=== PATIENT | female | born 1970 | race Caucasian/White ===

== ENCOUNTER → 2018-04-24 16:30 | Outpatient (CLI) | payer OTHER, SELFPAY ==
[2018-04-24 17:24] LABS: T4 Free Direct 1.18 ng/dL (0.76-1.46); Thyroid Stim Hormone (TSH) < 0.01 uIU/mL (0.358-3.74)
== END ==
PROVIDERS: Family Provider Family Medicine; PCP Family Medicine; Visit Provider Family Medicine
DX: E03.9 Hypothyroidism, unspecified (principal)
CPT/HCPCS: 84439; 84443

== ENCOUNTER → 2018-07-08 12:52 | Outpatient (CLI) | payer OTHER, SELFPAY ==
[2018-07-08 14:05] LABS: T4 Free Direct 0.88 ng/dL (0.76-1.46); Thyroid Stim Hormone (TSH) < 0.01 uIU/mL (0.358-3.74)
[2018-07-11 13:08] LABS: Free T3 2.3 pg/mL (2.18-3.98)
== END ==
PROVIDERS: Family Provider Family Medicine; PCP Family Medicine; Referring Provider Family Medicine; Visit Provider Family Medicine
DX: E03.9 Hypothyroidism, unspecified (principal)
CPT/HCPCS: 36415; 84439; 84443; 84481

== ENCOUNTER → 2018-08-21 16:02 | Outpatient (CLI) | payer OTHER, SELFPAY ==
[2018-08-21 17:58] LABS: Free T3 2.4 pg/mL (2.18-3.98); T4 Free Direct 0.96 ng/dL (0.76-1.46); Thyroid Stim Hormone (TSH) 0.05 uIU/mL (0.358-3.74)
== END ==
PROVIDERS: Family Provider Family Medicine; PCP Family Medicine; Referring Provider Family Medicine; Visit Provider Family Medicine
DX: E03.9 Hypothyroidism, unspecified (principal)
CPT/HCPCS: 36415; 84439; 84443; 84481

== ENCOUNTER → 2018-10-10 16:35 | Outpatient (CLI) | payer OTHER, SELFPAY ==
[2018-10-10 17:15] LABS: Absolute Lymphocyte Count 3.06 X10^3/ul (0.83-4.51); Absolute Neutrophil Count 6.7 X10^3/uL (2.0-7.7); Basophil# 0.04 X10^3/uL; Basophil% 0.4 % (0-1); Eosinophil# 0.26 X10^3/uL; Eosinophils% 2.4 % (0-5); Hematocrit 40.9 % (37-47); Hemoglobin 13.3 g/dl (12.0-15.0); Lymphocyte # 3.06 X10^3/ul (4.0); Lymphocyte % 27.8 % (19-41); Mean Corp Hgb Conc 32.5 g/gl (32-36); Mean Corpuscular Volume 92.3 fL (81-99); Mean Platelet Vol. 10.6 fl (6.2-12.0); Monocyte# 0.86 X10^3/uL; Monocyte% 7.8 % (0-10); Neutrophil % 60.8 % (47-70); Platelet Count 263 K/mm3 (150-450); RBC Distribution Width CV 12.8 % (11.6-14.6); RBC Distribution Width SD 41.9 fl (35.1-43.9); Red Blood Count 4.43 M/mm3 (4.2-5.4)
[2018-10-10 17:16] LABS: POSITIVE COUNT NO; POSITIVE DIFFERENTIAL NO; POSITIVE MORPHOLOGY NO
[2018-10-10 17:37] LABS: Vitamin B12 406 pg/mL (211-911); Vitamin D,25 Hydroxy 17.9 ng/mL (29.95-100.01)
[2018-10-10 18:15] LABS: ALB/GLOB Ratio 0.9 RATIO (0.9-2.4); AST(SGOT) 16 U/L (15-37); Alanine Aminotransfer ALT/SGPT 25 U/L (13-56); Albumin, Serum 3.5 g/dL (3.2-5.0); Alkaline Phosphatase 106 U/L (45-117); Anion Gap 5 (5-15); BUN 11 mg/dL (7-18); BUN/Creat Ratio 15.7 RATIO (10-20); Calcium,Total 8.3 mg/dL (8.5-10.1); Chloride 106 mmol/L (98-107); EST Glomerular Filtration Rate 95 mL/min (>60); Est Glom Filt Rate - Afr Amer 115 mL/min (>60); Ferritin 46 ng/mL (8-252); Globulin 3.7 g/dL (2.2-4.2); Glucose 87 mg/dL (74-106); Iron Binding Capacity,Total 355 ug/dL (250-450); Potassium 4.6 mmol/L (3.5-5.1); Protein, Total 7.2 g/dL (6.4-8.2); Sodium Level 138 mmol/L (136-145); T3 Uptake 34 % (30-39); T4 Free Direct 0.67 ng/dL (0.76-1.46); Thyroid Stim Hormone (TSH) 0.89 uIU/mL (0.358-3.74)
[2018-10-14 11:08] LABS: Zinc, Plasma or Serum 62 ug/dL (56-134)
== END ==
PROVIDERS: Family Provider Family Medicine; PCP Family Medicine; Referring Provider Family Medicine; Visit Provider Family Medicine
DX: E03.9 Hypothyroidism, unspecified (principal); E55.9 Vitamin D deficiency, unspecified; Z71.3 Dietary counseling and surveillance
CPT/HCPCS: 36415; 80053; 82306; 82607; 82728; 82746; 83550; 84439; 84443; 84479; 84630; 85025

== ENCOUNTER 2019-01-20 08:38 | Emergency (ER) | payer OTHER, SELFPAY ==
[2019-01-20 08:38] VITALS: BP 147/86; PULSE 117; RESP 18; TEMP 37.3; O2SAT 98; BMI 38.2
--- NOTE | 2019-01-20 09:01 | EKG12_ITS ---
Test Reason : EDEMA Blood Pressure : / mmHG Vent. Rate : 095 BPM Atrial Rate : 095 BPM P-R Int : 164 ms QRS Dur : 080 ms QT Int : 342 ms P-R-T Axes : 036 013 007 degrees QTc Int : 429 ms Normal sinus rhythm Low Voltage QRS (Precordial Leads) Confirmed by JAMES HUTCHINS, CHASE ([id number]), magazine editor SAMIR NGUYEN ([id number]) on 01/22/2019 1:26:03 PM Referred By: GABINO Confirmed By:CHASE RAMIREZ MD
--- NOTE | 2019-01-20 09:02 | RAD_ITS ---
STUDY: X-RAY - LEFT TIBIA AND FIBULA REASON FOR EXAM: Female, 48 years old. 2 week history of swelling. No known injury. TECHNIQUE: AP and lateral view(s) of the tibia and fibula were obtained. COMPARISON: None. FINDINGS: Normal visualized tibia. Normal visualized fibula. The soft tissue structures are unremarkable. RAD/Tibia & Fibula 2 Views IMPRESSION: Normal x-ray examination of the tibia and fibula. Electronically Signed: Ki Ayala, at 10:33 EDT , Service support ,
--- NOTE | 2019-01-20 09:02 | VDLE_ITS ---
Reason For Study: pain RIGHT LEFT CFV is compressible, spontaneous, phasic, GSV is normal. competent and demonstrates normal CFV is compressible, spontaneous, phasic, augmentation. competent, and demonstrates normal Procedure augmentation. Exam performed portable in ED. FV is compressible, spontaneous, phasic, The exam was diagnostic. competent and demonstrates normal A preliminary report was called and/or faxed augmentation. to Dr. Goodman. POP V is compressible, spontaneous, phasic, competent and demonstrates normal augmentation. T/P Trunk is compressible. PTV is compressible. LT PerV is compressible. Interpretation Summary There is no evidence of left lower extremity deep vein thrombosis. Left greater saphenous vein appears patent and compressible segmentally. Normal flow patterns right common femoral vein. Ordering Physician: Casey Goodman Performed By: Harrison Adams RVT
--- NOTE | 2019-01-20 09:02 | RAD_ITS ---
STUDY: X-RAY - LEFT FOOT CLINICAL: Female, 48 years old. Two-week history of ankle swelling. Pain. No known injury. TECHNIQUE: 3 view(s) of the foot. COMPARISON: None. FINDINGS: There is a plantar calcaneal spur. Normal visualized subtalar, talonavicular, calcaneocuboid, tarsal and tarsometatarsal articulations. Normal metatarsi. Normal metatarsophalangeal joint of the great toe. Normal tibial and fibular sesamoid bones. Normal interphalangeal joint of the great toe. Normal phalanges of the great toe. Normal second through fifth metatarsophalangeal joints. Normal interphalangeal joints and phalanges of the lesser toes. Soft tissue swelling. RAD/Foot min 3 Views IMPRESSION: Plantar spur. Electronically Signed: Ki Ayala, at 10:33 EDT , Service support ,
--- NOTE | 2019-01-20 09:04 | ED.VISSUMM ---
- ER Visit Summary Date of Service: 01/20/19 Chief Complaint: Left leg pain and swelling History of Present Illness: The patient is a [address] Larry Armas. She reports that approximately 1 month ago she began doing yoga which is a change for her. She reports that she had been doing well and was a bit sore, but nothing unexpected. 2 weeks ago she had a deep tissue massage and woke the next morning and her left ankle was swollen and painful. She reports that the area was painful to the touch and she had mild pain with walking. She states that the next morning both ankles were painful and swollen. She states that she is continued to do yoga and her pain actually improves during this. She notes that her pain is the worst in the morning or if she has been sitting. This morning patient reports that her left ankle and knee are much more painful. She states that she has a constant dull, aching pain that is 2 out of 10 at rest and 8 out of 10 with touching it, walking, or moving her foot. She has not taken anything for pain. She does report that she had mild relief from a hot shower. She reports that that this morning when she went to walk the pain was so severe that she actually fell twice. She denies any blow to the head or loss of consciousness. She is not on anticoagulants. She denies any neck, back, shoulder, wrist, or hip pain. Review of systems: General: No fever, chills, cold sweats. Cardiovascular: No chest pain, palpitations. Respiratory: No cough, shortness of breath, dyspnea on exertion. Gastrointestinal: No abdominal pain, nausea, vomiting, diarrhea, melena, or hematochezia. Genitourinary: No dysuria, frequency, hematuria. Skin: No rash. Neuro: No headache, numbness, weakness. Physical Examination: Vitals: Stable. Afebrile. General: Well-nourished and well-developed. Head: Normocephalic atraumatic. Neck: Supple, no lymphadenopathy. No JVD. Nontender. Cardiovascular: Regular rate and rhythm. No murmurs. Respiratory: No respiratory distress. Clear to auscultation bilaterally. Abdominal: Soft, nontender, nondistended, normal bowel sounds. No guarding, rebound, or peritoneal signs. Back: Nontender. Extremities: Trace edema left leg. She has a 2+ dorsalis pedis pulse bilaterally. Normal sensation to light touch. She has moderate tenderness palpation over both the medial and lateral malleoli on the left. There is mild tenderness to palpation over the plantar surface of the calcaneus distally. There is no pain over the plantar fascia. She has mild tenderness palpation in the left popliteal fossa. She has good range of motion of her knee without difficulty. Skin: Normal color, no rash. Neurologic: Alert and oriented ?3. Cranial nerves II through XII are intact. Normal strength and sensation. Psych: Normal affect. Test Results: EKG is sinus at [address] changes. Is unchanged from 2017. Troponin is negative. PT DOOR CLOSER is 20.4. UA is negative. LFTs are marked for alk phos of 126. Chem-7 is normal. CBC shows a white count of 14.7 with segmented neutrophils 84 monocytes of 9. TSH is 0.08. Left lower extremity Doppler is negative. Left tib-fib x-ray shows no acute disease. Left foot x-ray shows a plantar calcaneal spur and is otherwise negative. Emergency Department Course and Treatment: Patient had an IV placed. She was given a dose of morphine and Zofran IV. She is resting comfortably. Treatment Plan: The patient was discussed with Dr. Zelaya and Dr. Armas. At this time it is felt that she does not need antibiotics. She will be discharged with Thierno and instructed to follow-up with Dr. Armas tomorrow for further evaluation. Return to the emergency department for any worsening symptoms. Disposition: To home in improved and stable condition. Impression: 1. Left ankle pain, uncertain cause. 2. Leukocytosis. This note was generated with [employer] dictation software. It may contain incorrect words, spelling, and punctuation that were not noted in review of the chart prior to signing ED Disposition - Plan for ED Patient: Disposition: Home or Assisted Living Instructions: ED Leg Swelling Unilateral Prescriptions: Hydrocodone Bitart/Apap 5-325 [[place] 5MG-325MG] 1 tablet PO Q6H PRN PRN 3 Days #12 tablet PRN Reason: Pain Referrals: Larry Armas MD [Primary Care Provider] - 1 Day for another exam
--- NOTE | 2019-01-20 09:08 | ED.DCSUM_ITS ---
- ER Visit Summary Date of Service: 01/20/19 Chief Complaint: Left leg pain and swelling History of Present Illness: The patient is a [address] Larry Armas. She reports that approximately 1 month ago she began doing yoga which is a change for her. She reports that she had been doing well and was a bit sore, but nothing unexpected. 2 weeks ago she had a deep tissue massage and woke the next morning and her left ankle was swollen and painful. She reports that the area was painful to the touch and she had mild pain with walking. She states that the next morning both ankles were painful and swollen. She states that she is continued to do yoga and her pain actually improves during this. She notes that her pain is the worst in the morning or if she has been sitting. This morning patient reports that her left ankle and knee are much more painful. She states that she has a constant dull, aching pain that is 2 out of 10 at rest and 8 out of 10 with touching it, walking, or moving her foot. She has not taken anything for pain. She does report that she had mild relief from a hot shower. She reports that that this morning when she went to walk the pain was so severe that she actually fell twice. She denies any blow to the head or loss of consciousness. She is not on anticoagulants. She denies any neck, back, shoulder, wrist, or hip pain. Review of systems: General: No fever, chills, cold sweats. Cardiovascular: No chest pain, palpitations. Respiratory: No cough, shortness of breath, dyspnea on exertion. Gastrointestinal: No abdominal pain, nausea, vomiting, diarrhea, melena, or hematochezia. Genitourinary: No dysuria, frequency, hematuria. Skin: No rash. Neuro: No headache, numbness, weakness. Physical Examination: Vitals: Stable. Afebrile. General: Well-nourished and well-developed. Head: Normocephalic atraumatic. Neck: Supple, no lymphadenopathy. No JVD. Nontender. Cardiovascular: Regular rate and rhythm. No murmurs. Respiratory: No respiratory distress. Clear to auscultation bilaterally. Abdominal: Soft, nontender, nondistended, normal bowel sounds. No guarding, rebound, or peritoneal signs. Back: Nontender. Extremities: Trace edema left leg. She has a 2+ dorsalis pedis pulse bilaterally. Normal sensation to light touch. She has moderate tenderness palpation over both the medial and lateral malleoli on the left. There is mild tenderness to palpation over the plantar surface of the calcaneus distally. There is no pain over the plantar fascia. She has mild tenderness palpation in the left popliteal fossa. She has good range of motion of her knee without difficulty. Skin: Normal color, no rash. Neurologic: Alert and oriented ?3. Cranial nerves II through XII are intact. Normal strength and sensation. Psych: Normal affect. Test Results: EKG is sinus at [address] changes. Is unchanged from 2017. Troponin is negative. PT ADVERTISING DISPLAY ROTATOR is 20.4. UA is negative. LFTs are marked for alk phos of 126. Chem-7 is normal. CBC shows a white count of 14.7 with segmented neutrophils 84 monocytes of 9. TSH is 0.08. Left lower extremity Doppler is negative. Left tib-fib x-ray shows no acute disease. Left foot x- ray shows a plantar calcaneal spur and is otherwise negative. Emergency Department Course and Treatment: Patient had an IV placed. She was given a dose of morphine and Zofran IV. She is resting comfortably. Treatment Plan: The patient was discussed with Dr. Zelaya and Dr. Armas. At this time it is felt that she does not need antibiotics. She will be discharged with Thierno and instructed to follow-up with Dr. Armas tomorrow for further evaluation. Return to the emergency department for any worsening symptoms. Disposition: To home in improved and stable condition. Impression: 1. Left ankle pain, uncertain cause. 2. Leukocytosis. This note was generated with [employer] dictation software. It may contain incorrect words, spelling, and punctuation that were not noted in review of the chart prior to signing ED Disposition - Plan for ED Patient: Disposition: Home or Assisted Living Instructions: ED Leg Swelling Unilateral Prescriptions: Hydrocodone Bitart/Apap 5-325 [[place] 5MG-325MG] 1 tablet PO Q6H PRN PRN 3 Days #12 tablet PRN Reason: Pain Referrals: Larry Armas MD [Primary Care Provider] - 1 Day for another exam
[2019-01-20] MEDS: Ondansetron 4 MG/2 ML Vial IV (09:21)
[2019-01-20] MEDS: Morphine 4 MG/ML Syringe IV (09:21)
[2019-01-20 09:33] LABS: Absolute Lymphocyte Count 1.29 X10^3/ul (0.83-4.51); Absolute Neutrophil Count 12.3 X10^3/uL (2.0-7.7); Basophil# 0.02 X10^3/uL; Basophil% 0.1 % (0-1); Eosinophil# 0.11 X10^3/uL; Eosinophils% 0.7 % (0-5); Hematocrit 40.8 % (37-47); Hemoglobin 13.4 g/dl (12.0-15.0); Lymphocyte # 1.29 X10^3/ul (4.0); Lymphocyte % 8.8 % (19-41); Mean Corp Hgb Conc 32.8 g/gl (32-36); Mean Corpuscular Hgb 29.1 pg (27.0-32.0); Mean Corpuscular Volume 88.5 fL (81-99); Mean Platelet Vol. 10.6 fl (6.2-12.0); Monocyte# 0.89 X10^3/uL; Monocyte% 6.1 % (0-10); Neutrophil # 12.32 X10^3/uL (2.7-7.7); Platelet Count 244 K/mm3 (150-450); RBC Distribution Width CV 12.9 % (11.6-14.6); Red Blood Count 4.61 M/mm3 (4.2-5.4); White Blood Count 14.7 K/mm3 (4.4-11.0)
[2019-01-20 09:34] LABS: POSITIVE COUNT NO; POSITIVE DIFFERENTIAL NO; POSITIVE MORPHOLOGY NO
[2019-01-20 10:01] LABS: ALB/GLOB Ratio 0.8 RATIO (0.9-2.4); AST(SGOT) 23 U/L (15-37); Alanine Aminotransfer ALT/SGPT 21 U/L (13-56); Albumin, Serum 3.3 g/dL (3.2-5.0); Alkaline Phosphatase 126 U/L (45-117); Anion Gap 5 (5-15); BNP,B-Type NATRIURETIC PEPTIDE 20.4 pg/mL (0-100); BUN 10 mg/dL (7-18); BUN/Creat Ratio 14.7 RATIO (10-20); Calcium,Total 8.7 mg/dL (8.5-10.1); Chloride 107 mmol/L (98-107); Creatinine, Serum 0.68 mg/dL (0.55-1.02); EST Glomerular Filtration Rate 98 mL/min (>60); Est Glom Filt Rate - Afr Amer 119 mL/min (>60); Estimated Creatinine Clearance 87.37 ml/min; Globulin 3.9 g/dL (2.2-4.2); Glucose 104 mg/dL (74-106); Potassium 4.3 mmol/L (3.5-5.1); Protein, Total 7.2 g/dL (6.4-8.2); Sodium Level 139 mmol/L (136-145); Thyroid Stim Hormone (TSH) 0.08 uIU/mL (0.358-3.74)
[2019-01-20] MEDS: HYDROcodone Bitartrate/Apap 5/325 Tablet PO (10:58)
[2019-01-20 11:01] VITALS: BP 105/70; PULSE 81; RESP 16; O2SAT 97
[2019-01-20 12:01] LABS: Color, Urine Yellow (Yellow); Glucose, Dipstick Normal (Normal); Ketone-Dipstick Negative (Negative); Leukocyte Esterase-Dipstick 25 /ul (Negative); Nitrite-Dipstick Negative (Negative); Occult Blood-Urine Negative /ul (Negative); Protein-Dipstick Negative (Negative); Urine Bilirubin Dipstick Negative (Negative); Urine Clarity Sl. Cloudy (Clear); Urine Urobilinogen Normal (Normal)
[2019-01-20 12:13] LABS: Bacteria RARE /hpf (None Seen); Mucous, Urine RARE /hpf (<or=2+); Red Blood Cells-Urine 0-5 SEEN /hpf (0-5); Squamous Epithelial Cells - UA 0-5 SEEN /hpf (5-10); White Blood Cells 0-5 SEEN /hpf (0-5)
[2019-01-20 13:19] VITALS: BP 98/62; PULSE 71; RESP 15; O2SAT 98
[2019-01-20 13:40] LABS: CPK Total, Creatine Kinase 67 U/L (26-192)
== END 2019-01-20 13:20 | disposition home or self-care (01) ==
LOC: ED 09:08
PROVIDERS: Emergency Provider Emergency Medicine; Family Provider Family Medicine; PCP Family Medicine
DX: M25.572 Pain in left ankle and joints of left foot (principal); D72.829 Elevated white blood cell count, unspecified; E06.3 Autoimmune thyroiditis
CPT/HCPCS: 73590; 73630; 80053; 81001; 82550; 83880; 84443; 84484; 85025; 93005; 93971; 96374; 96375; 99285; A4216; J2405

== ENCOUNTER → 2019-05-06 14:52 | Outpatient (CLI) | payer OTHER, SELFPAY ==
--- NOTE | 2019-05-06 14:54 | BI_ITS ---
MAMMOGRAPHY - BILATERAL SCREENING REASON FOR EXAM: Female, 48 years old. Routine annual screening examination. PERTINENT HISTORY: Non-contributory. TECHNIQUE: Digital bilateral breast kenneth (3D mammographic acquisition) in the CC and MLO projections. 2-D mediolateral oblique (MLO) and craniocaudad (CC) views of both breasts were obtained. CAD: Full Field Digital Mammography with Computer Added Detection was performed. COMPARISON: Comparison is made with prior study dated September 12, 2017. FINDINGS: Breast Composition: The breasts are heterogeneously dense, which may obscure small masses. There are no dominant masses or suspicious calcifications. Stable small bilateral axillary lymph nodes. No other significant abnormalities are identified. There has been no significant change since the prior study. BI/SCREEN MAMM (CAD) W/KENNETH BILAT IMPRESSION: Stable bilateral screening mammogram. Yearly follow-up mammogram recommended. (A) ASSESSMENT CATEGORY: BIRADS Category 2: Benign. A letter regarding these results will be sent to the patient by the facility within 30 days. Approximately 10% of breast cancers are not detected by mammography. A normal mammogram should not delay biopsy of a clinically suspicious abnormality. [id number] Electronically Signed: Ki Ayala, at 8:19 EDT , Service support ,
== END ==
PROVIDERS: Family Provider Family Medicine; PCP Family Medicine; Referring Provider Nurse Practitioner Adult Health; Visit Provider Nurse Practitioner Adult Health
DX: Z12.31 Encounter for screening mammogram for malignant neoplasm of breast (principal)
CPT/HCPCS: 77063; 77067

== ENCOUNTER → 2019-08-31 11:48 | Outpatient (CLI) | payer OTHER, SELFPAY ==
[2019-06-24 21:10] VITALS: BMI 38.2
[2019-08-31 13:13] LABS: Estradiol 53.2 pg/mL; Follicle Stimulating Hormone 33.1 mIU/mL; Free T3 2.4 pg/mL (2.18-3.98); Prolactin 5.3 ng/mL; T4 Free Direct 0.96 ng/dL (0.76-1.46)
[2019-09-02 09:36] LABS: Insulin Like Growth Factor 109 ng/mL (57-195)
[2019-09-02 17:05] LABS: Thyroid Peroxidase AB 112 IU/mL (0-34)
== END ==
PROVIDERS: Family Provider Family Medicine; PCP Family Medicine; Referring Provider Internal Medicine Endocrinology, Diabetes & Metabolism; Visit Provider Internal Medicine Endocrinology, Diabetes & Metabolism
DX: E23.7 Disorder of pituitary gland, unspecified (principal); E03.9 Hypothyroidism, unspecified
CPT/HCPCS: 36415; 82533; 82670; 83001; 84146; 84305; 84439; 84443; 84481; 86376

== ENCOUNTER 2019-10-13 13:00 | Outpatient (RCR) | payer OTHER, SELFPAY ==
[2019-06-24 21:10] VITALS: BMI 38.2
--- NOTE | 2019-09-08 09:27 | HP.PTEVAL ---
Patient's Visit Information ABRIL PROCTOR is a 48 year old F referred to Physical Therapy by Larry Armas MD with a diagnosis of R rotator cuff tenderness. Date of Evaluation: 09/08/19 Physical Therapist: Devon Marin PT, ATC - Visit Plan Frequency: 2-3x /Week Duration: 9 visits Plan: R rotator cuff strengthening, scapular stab ex's, UBE, and HEP - Subjective Findings: Pt reports her R shoulder has been sore for greater than six months. Pt reports her pain had an insidious onset in nature. Pt reports she has had several injections in her R shoulder which has actually made her feel worse overall. Pt notes she is R hand dominant. Pt reports reaching behind her back and driving a car increases her pain. Pt reports the pain begins on the posterior aspect of her R shoulder and will extend down to her hand at times. Pt describes her pain as a dull pain. Sleep difficulty at night secondary to pain. Pt reports she has had no Dx tests at this time. .5/10 pain at rest, 7/10 pain at worst (when it catches). R shoulder does not pop or lock up in her. - Pain R shoulder Pain Intensity (Out of 10): 1 Pain Intensity Range: 7 - Objective Neuro: B LE sensation is WNL to light touch. B bicepital reflex = 2/3. Palpation: Pain is present on the lateral aspect of the R shoulder. No obvious deformity present. ROM: L shoulder flexion= 155, abduction= 150, ER= 65, IR WNL; R shoulder flexion= 150, abd= 105, ER= 45, IR minimally limited. MMT: R shoulder is grossly 4-/5 and painful. L shoulder is 5/5 throughout. Special tests: Pos HK impingement tests - Goals Goal 1:: Decrease R shoulder pain x 50% to aid with sleep Goal Time Frame: 4-6 Weeks Goal 2:: Increase R shoulder strength x 1 grade to aid with IADL's Goal Time Frame: 4-6 Weeks Goal 3:: Increase R shoulder strength x 1 grade to aid with IADL's Goal Time Frame: 4-6 Weeks Goal 4:: I with HEP Goal Time Frame: 4-6 Weeks - Rehabilitation Potential Physical Therapy Diagnosis: R shoulder pain, weakness, and limited ROM secondary to rotator cuff syndrome Rehabilitation Potential: Good - Anticipated Interventions Patient/Client Instruction: Educate patient on: Condition, Plan of Care For the Purpose of:: To improve self management Therapeutic Exercise to Include: Strength training, Endurance training, Body mechanics, Active ROM, Scapular Strength/Stabilization For the Purpose of:: To decrease pain, To increase ROM, To improve muscle performance and motor function Cryotherapy (ice pack, ice massage): Yes For the Purpose of:: To decrease pain Thank you for the opportunity to evaluate your patient. For Medicare and Medicare HMO plans, please review the plan of care and approve it. It will need to be FAXED BACK to us at [phone] for Medicare purposes. For Medicare only, by signing this I certify the plan of care. Please let me know if there are questions or concerns regarding this plan of care. Physician Signature: Date:
--- NOTE | 2019-10-13 13:34 | HP.PTDCSUM ---
HP - PT D/C Summary It has been my pleasure to treat ABRIL PROCTOR under orders from Larry Armas MD, for the diagnosis of R rotator cuff tenderness for a total of 9 visit(s). Discharge Date: Please see the following information for a summary of their discharge status. - Subjective Subjective: Pt reports her shoulder still catches which is really painful - Pain R shoulder Pain Intensity (Out of 10): 4 - Overall Improvement % Improvement: 60 - Objective Objective/Function: R shoulder pain ranges from 4-9/10. R shoulder ROM: flex= 140, abd= 110, ER= 45 degrees. R shoulder MMT: 4-/5 throughout available ROM. Pt is I with HEP - Goals Goal 1:: Decrease R shoulder pain x 50% to aid with sleep Goal 2:: Increase R shoulder strength x 1 grade to aid with IADL's Goal 3:: Increase R shoulder strength x 1 grade to aid with IADL's Goal 4:: I with HEP - Plan Plan: Discontinue, RTD - D/C Information If there are questions or concerns regarding this patient's physical therapy, please feel free to call me at [phone]. Thank you for the referral of this patient. Sincerely, Devon Marin, PT, ATC
== END 2019-10-13 19:00 | disposition home or self-care (01) ==
LOC: PT 13:00
PROVIDERS: Family Provider Family Medicine; PCP Family Medicine; Referring Provider Family Medicine; Visit Provider Family Medicine
DX: M25.511 Pain in right shoulder (principal)
CPT/HCPCS: 97110; 97161; 97164

== ENCOUNTER → 2019-10-29 10:32 | Outpatient (CLI) | payer OTHER, SELFPAY ==
[2019-10-29 10:28] VITALS: BMI 38.2
--- NOTE | 2019-10-29 10:33 | RAD_ITS ---
STUDY: X-RAY - RIGHT SHOULDER REASON FOR EXAM: Pain, no specific injury. TECHNIQUE: 3 view(s) of the shoulder. COMPARISON: None. FINDINGS: Normal glenohumeral articulation. There is mild acromioclavicular arthrosis. Normal acromion. Normal humeral head and visualized proximal humerus. The soft tissue structures are unremarkable. Normal visualized pulmonary apex. RAD/Shoulder min 2 Views IMPRESSION: Mild acromioclavicular arthrosis. Electronically Signed: Edil Gan MD at 13:12 EST Tel , Service support ,
--- NOTE | 2019-10-29 10:33 | RAD_ITS ---
STUDY: X-RAY - CERVICAL SPINE REASON FOR EXAM: Female, 49 years old. Neck and right shoulder pain. TECHNIQUE: 5 view(s) of the cervical spine were obtained. COMPARISON: None FINDINGS: Normal anterior atlantoaxial articulation. Normal odontoid process. Normal cervical lordosis. Normal vertebral bodies and endplates. Normal disc space heights. Diffuse mild uncovertebral and facet sclerosis. Carotid calcification bilaterally. RAD/Cerv Spine 4 or 5 Views IMPRESSION: Mild cervical spondylosis. Carotid calcification. Electronically Signed: Jean Marie Cordova MD at 16:43 EST , Service support ,
== END ==
PROVIDERS: PCP Family Medicine; Referring Provider Orthopaedic Surgery; Visit Provider Orthopaedic Surgery
DX: M79.601 Pain in right arm (principal); M25.511 Pain in right shoulder
CPT/HCPCS: 72050; 73030

== ENCOUNTER → 2019-11-06 13:09 | Outpatient (CLI) | payer OTHER, SELFPAY ==
[2019-10-29 10:28] VITALS: BMI 38.2
--- NOTE | 2019-11-06 13:09 | MRI_ITS ---
STUDY: MRI RIGHT SHOULDER REASON FOR EXAM: Right shoulder biceps pain for one year. TECHNIQUE: Standardized fat and water weighted pulse sequences were obtained in all 3 orthogonal planes. COMPARISON: Radiographs 10/29/2019. FINDINGS: There is supraspinatus tendinosis and intermediate grade partial-thickness tear of the bursal surface of the distal anterior supraspinatus tendon (T2 sagittal image 7; T2 coronal image 14) measuring approximately 1 cm in length and width with mild delamination (T2 coronal image 13). Normal infraspinatus tendon. Normal subscapularis tendon. Normal teres minor tendon. Normal supraspinatus muscle. Normal infraspinatus muscle. Normal subscapularis muscle. Normal teres minor muscle. Normal glenohumeral articulation. Normal humeral head and visualized proximal humerus. Normal biceps labral complex. There is mild tendinosis of the intracapsular long biceps tendon (T2 sagittal image 11). Normal labrum. Normal capsulo- ligamentous complex. There is mild acromioclavicular arthrosis without undersurface osteophytes (T2 sagittal image 13). There is a Type II morphology (curved), with a neutral orientation. There is a small volume of subacromial-subdeltoid bursal fluid. Normal visualized coracohumeral and coracoacromial ligaments. Normal deltoid muscle. Normal trapezius muscle. MRI/Upper Ext Joint Only(Routine) IMPRESSION: Small partial-thickness tear and tendinosis of the supraspinatus tendon. Mild tendinosis of the long biceps tendon. Mild acromioclavicular arthrosis. Mild subacromial-subdeltoid bursitis. Electronically Signed: Edil Gan MD at 14:57 EST Tel , Service support ,
== END ==
PROVIDERS: PCP Family Medicine; Referring Provider Orthopaedic Surgery; Visit Provider Orthopaedic Surgery
DX: M75.21 Bicipital tendinitis, right shoulder (principal); M75.101 Unspecified rotator cuff tear or rupture of right shoulder, not specified as traumatic; M75.41 Impingement syndrome of right shoulder
CPT/HCPCS: 73221

== ENCOUNTER → 2020-05-16 12:24 | Outpatient (CLI) | payer OTHER, SELFPAY ==
[2020-02-02 08:49] VITALS: BMI 38.2
[2020-05-16 15:50] LABS: Anion Gap 4 (5-15); BUN 11 mg/dL (7-18); BUN/Creat Ratio 17.1 RATIO (10-20); Calcium,Total 9.1 mg/dL (8.5-10.1); Chloride 105 mmol/L (98-107); Cholesterol 164 mg/dL (200); Creatinine, Serum 0.64 mg/dL (0.55-1.02); EST Glomerular Filtration Rate 104 mL/min (>60); Est Glom Filt Rate - Afr Amer 125 mL/min (>60); Glucose 95 mg/dL (74-106); High Density Lipoprotein 68 mg/dL; Potassium 4.7 mmol/L (3.5-5.1); Sodium Level 138 mmol/L (136-145); Thyroid Stim Hormone (TSH) 0.03 uIU/mL (0.358-3.74); Triglycerides 93 mg/dL; Very Low Density Lipoprotein 19 mg/dL (5-40)
== END ==
PROVIDERS: PCP Family Medicine; Referring Provider Family Medicine; Visit Provider Nurse Practitioner Adult Health
DX: E03.9 Hypothyroidism, unspecified (principal); Z13.1 Encounter for screening for diabetes mellitus; Z13.220 Encounter for screening for lipoid disorders
CPT/HCPCS: 36415; 80048; 80061; 84443

== ENCOUNTER 2020-05-17 22:06 | Inpatient (IN) | payer OTHER, SELFPAY ==
[2020-02-02 08:49] VITALS: BMI 38.2
[2020-05-17 22:06] VITALS: BP 149/80; PULSE 84; RESP 18; TEMP 36.6; O2SAT 100; BMI 40.4
--- NOTE | 2020-05-17 22:20 | CT_ITS ---
STUDY: CT ABDOMEN AND PELVIS WITH CONTRAST REASON FOR EXAM: Female, 49 years old. EPIGASTRIC AND RUQ PAIN X 2 Hrs, nausea -- HX:DIABETES,DELFINO''S DISEASE -- SURGERY:APPY,GASTRIC BYPASS,HYSTERECTOMY RADIATION DOSAGE (If Supplied By Facility): CTDIvol = ( 2.98 ) mGy, DLP = ( 1221.19 ) mGycm TECHNIQUE: Transaxial images were obtained from the dome of the diaphragm to the symphysis pubis with oral contrast. Oral and amp; IV Gastrografin and amp; 100mL Isovue-370 was administered. Sagittal and coronal images were reconstructed. Individualized dose optimization techniques were used for this CT. COMPARISON: CT abdomen and pelvis April 22, 2017 FINDINGS: There is a 6.6 mm nodular density left lower lobe which appears to be pleural-based allowing for averaging. The visualized portions of the heart are within normal limits. Normal liver. The gallbladder is distended. The wall does not appear to be particularly thickened on the CT. Normal spleen. Normal pancreas. Normal bilateral adrenal glands. Normal right kidney. Normal left kidney. There is a mildly thick-walled appearing hiatal hernia that measures 3.5 x 2.7 cm. This is slightly greater than prior study. Is visualized postoperative change at the gastroesophageal junction and in the stomach compatible with bypass. There is postoperative change within the proximal small bowel. There is contrast in normal loops of small bowel. There is moderate stool in the colon. There are a few diverticula present without visualized diverticulitis. There is a decompressed appearance of the distal sigmoid and rectum. There is non-visualization of the appendix. Normal abdominal aorta. Normal inferior vena cava. Normal retroperitoneum. Normal urinary bladder. There is absence of the uterus consistent with a prior hysterectomy. There is a minimal fatty umbilical hernia with a slight bulge of nonobstructed small bowel. There are diffuse degenerative changes of the visualized lumbar spine. CT/Abdomen/Pelvis WITH Contrast IMPRESSION: Slightly larger hiatal hernia and mild wall thickening. Postoperative changes status post gastric bypass. Nonspecific distended gallbladder could consider gallbladder ultrasound. [id number] constipation. There is a minimal midline umbilical hernia with nearby slight bulge nondistended small bowel. Status post hysterectomy. Small pleural-based nodule left lower lobe, measuring 6.6 mm recommend follow-up CT scan of the chest in 6 months to ensure stability. Electronically Signed: Jackie Darling MD at 0:55 EDT Tel , Service support ,
--- NOTE | 2020-05-17 22:22 | ED.DCSUM_ITS ---
- ER Visit Summary Date of Service: 05/17/20 Chief Complaint: Abdominal pain History of Present Illness: The patient is a 49 F who presents with abdominal pain. She states the pain started about 2 hours ago. She was eating dinner when this pain started. She states that at times if she takes large bites she does get pain but usually goes away. She had gastric bypass surgery 4 years ago so she has to take smaller bites when eating. This pain did not go away. Centered in the epigastric and right upper quadrant. She felt nauseous but had no vomiting. She is a no diarrhea or constipation. She denies any fevers. She has seen Dr. Sarabia in the past for some possible gallbladder issues but she mcgovern s not had surgery and still has her gallbladder in place. Physical Examination: Vital signs reviewed. HEENT exam unremarkable. Heart is regular rate and rhythm without murmurs. Lungs are clear to auscultation. Abdomen is soft with tenderness in the right upper quadrant and epigastric region. There is no guarding or rebound tenderness. Extremities reveal no edema. Skin exam normal. Neurologic exam normal. Test Results: CBC unremarkable. Glucose 114. AST 14, lipase 554. CAT scan with p.o. and IV contrast is pending at this time Emergency Department Course and Treatment: Patient was given morphine and Zofran. Labs show a slightly elevated lipase but otherwise unremarkable. Patient will be signed out to the oncoming physician for follow-up of the CAT scan. Treatment Plan: [] Disposition: Pending Impression: Abdominal pain This note was generated with [employer] dictation software. It may contain incorrect words, spelling, and punctuation that were not noted in review of the chart prior to signing ED Disposition - Plan for ED Patient: Referrals: Larry Armas MD [Primary Care Provider] -
[2020-05-17] MEDS: Morphine 4 MG/ML Syringe IV (22:28)
[2020-05-17] MEDS: Ondansetron 4 MG/2 ML Vial IV (22:28)
[2020-05-17 22:39] LABS: Absolute Lymphocyte Count 2.77 X10^3/uL (0.83-4.51); Absolute Neutrophil Count 6.8 X10^3/uL (2.0-7.7); Basophil# 0.05 X10^3/uL; Basophil% 0.5 % (0-1); Eosinophil# 0.14 X10^3/uL; Eosinophils% 1.3 % (0-5); Hematocrit 39.3 % (37-47); Hemoglobin 12.9 g/dL (12.0-15.0); Lymphocyte # 2.77 X10^3/ul (4.0); Lymphocyte % 26.1 % (19-41); Mean Corp Hgb Conc 32.8 g/dL (32-36); Mean Corpuscular Hgb 28.6 pg (27.0-32.0); Mean Corpuscular Volume 87.1 fL (81-99); Mean Platelet Vol. 10.5 fl (6.2-12.0); Monocyte# 0.77 X10^3/uL; Monocyte% 7.3 % (0-10); NRBC Flagged by Analyzer 0 % (0-5); Platelet Count 274 K/mm3 (150-450); RBC Distribution Width CV 12.7 % (11.6-14.6); RBC Distribution Width SD 40.1 fl (35.1-43.9); Red Blood Count 4.51 M/mm3 (4.2-5.4); White Blood Count 10.6 K/mm3 (4.4-11.0)
[2020-05-17 22:58] LABS: AST(SGOT) 14 U/L (15-37); Alanine Aminotransfer ALT/SGPT 21 U/L (13-56); Albumin, Serum 3.7 g/dL (3.2-5.0); Alkaline Phosphatase 104 U/L (45-117); Anion Gap 3 (5-15); BUN 11 mg/dL (7-18); BUN/Creat Ratio 16.2 RATIO (10-20); Bilirubin, Direct 0.14 mg/dL (0.00-0.30); Calcium,Total 9.3 mg/dL (8.5-10.1); Chloride 106 mmol/L (98-107); Creatinine, Serum 0.68 mg/dL (0.55-1.02); EST Glomerular Filtration Rate 97 mL/min (>60); Est Glom Filt Rate - Afr Amer 118 mL/min (>60); Estimated Creatinine Clearance 86.42 ml/min; Globulin 3.8 g/dL (2.2-4.2); Glucose 114 mg/dL (74-106); Lipase 554 U/L (73-393); Protein, Total 7.5 g/dL (6.4-8.2); Sodium Level 137 mmol/L (136-145)
[2020-05-18] VITALS (13 sets, daily range): BP systolic 100–136; BP diastolic 54–86; PULSE 58–101; RESP 14–18; TEMP 36.2–37.4; O2SAT 91–100; BMI 40.0
--- NOTE | 2020-05-18 | GALL_PTH ---
PATIENT: ABRIL PROCTOR LOC: [facility]3 U#:[id number] AGE/SX: 49/F ROOM: MS310 RE05/18/[address]: Dr. Larry Alvarado DO : 1970 BED: 1 DIS: 05/19/2020 SPEC #: [id number] RECD: 05/18/20 14:49 STATUS: BRYCE REQ #: [id number] SONIYA: 05/18/20 00:[address]: David Sarabia DEPT: SURGICAL PATHOLOGY RECD BY: Juan J Quintana ENTERED: 05/19/20 07:54 SP TYPE: GALLBLADDE OTHR DR: MD Dr. Larry Jara DO Dr. Eric Smith, MD Dr. Joseph Agyepong, MD Tissues: Gallbladder, NOS Procedures: Surgery Specimen Level III Comments: @ Ordering doctor for SUIII edited from to @ by ROXI at 05/19/20 0841 @ Submitting doctor edited from to @ by ROXI at 05/19/20 0841 HEADER OPERATION: Laparoscopic cholecystectomy and IOC PRE-OP DIAGNOSIS: Right upper quadrant abdominal pain, biliary colic TISSUE SUBMITTED: Gallbladder MICROSCOPIC DIAGNOSIS Gallbladder, cholecystectomy: Chronic cholecystitis and cholesterolosis. No stones are identified in the container or in the gallbladder. HERMES:tung 05/20/20 MICROSCOPIC DESCRIPTION Slides are reviewed. GROSS DESCRIPTION Received is one container labeled with the patient's name and designated gallbladder. The specimen consists of a gallbladder measuring 11 cm in length and up to 4.5 cm in diameter. The external surface is pink-mckeon, smooth and glistening for the most part. Focally it is granular, hemorrhagic and contains cautery artifact. The gallbladder contains green-yellow mucoid bile. No stones are identified in the container or in the gallbladder. The mucosa also shows several yellowish streaks consistent with cholesterolosis. The mucosa is bile-stained and without any mass lesions. The gallbladder wall measures up to 0.2 cm in thickness. Snuff Maker sections from the gallbladder and the cystic duct are submitted in one cassette. / HERMES:tung 05/19/20 TC:3 CPT: 39968
[2020-05-18] MEDS: Morphine 4 MG/ML Syringe IV (01:25)
--- NOTE | 2020-05-18 01:39 | PCM.HP.STD ---
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 Her pain radiated to her right upper quadrant and to her right middle back. She describes her pain as sharp. Her pain started while she was eating dinner. Highest severity of her pain is 5 out of 10. With a history of gastric bypass she typically have a pain when she takes bigger bites of food as a bigger bites of food gets stuck in her GI tract. So she told that she might had taken bigger bite of food. She tried easing her pain by walking around. However because her pain was not getting any better her brought her to the emergency department. Her pain improves with lying in the position. Also her pain improved with morphine given at emergency department .Her pain worsens with body movements. Associated with symptoms is nausea without vomiting. She denies fever or chills. CT of the abdomen and pelvis at the emergency department showed distended gallbladder without any stones seen. It also showed small pleural-based nodule at the left lower lobe; and mild to moderate constipation. However patient does not feel constipated. The last time her bowels moved was in the morning of the day of her presentation. At the ED her lipase was mildly elevated. Patient follows up with Dr. Sarabia and there was was plan to do a cholecystectomy outpatient. However because her thyroid levels were abnormal, her surgery was postponed. Emergency Department doctor discussed the case with Dr. Sarabia who will follow on inpatient consult. Past Medical History Medical History: Medical History (Last Reviewed 05/18/20 @ 05:[address] 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 Mikel Soni MD) History of Z98.891 x3 History of bariatric surgery Z98.84 History of hysterectomy Z90.710 History of right knee surgery Z98.890 History of tonsillectomy Z90.89 Smoking Status: Former smoker Alcohol: Occasional - *Family History Maternal Family History: Family History (Last Reviewed 05/18/20 @ 05:[address] Mikel Soni MD) Mother Anxiety Depression Hypertension Thyroid disorder Father Arthritis Autoimmune disorder Cancer Grandfather Suicide Daughter Seizures Review of Systems Constitutional: Denies: Chills, Fever, Weight Change HEENT: Denies: Head Aches, Sinus Congestion, Sinus Drainage Cardiovascular: Denies: Chest Pain, Palpitations Respiratory: Denies: Cough, Shortness of breath at rest, Sputum production Gastrointestinal: Reports: Abdominal Pain, Nausea. Denies: Vomiting Genitourinary: Denies: Dysuria Musculoskeletal: Reports: Back Pain. Denies: Joint Pain, Joint Tenderness Skin: Denies: Rash, Wounds Neurological: Denies: Numbness, Tingling, Focal weakness Psychiatric: Denies: Anxiety, Depression, Homicidal Ideations, Suicidal Ideations Hematologic/ Lymphatic: Denies: Easy Bruising, Easy Bleeding VTE Information - Inpt Only VTE Present on Admission: No VTE Mechan Device Prophylaxis: SCD's VTE Pharm Prophylaxis ordered?: No Patient Problems: Active and Suspected Problems (Last Reviewed 05/18/20 @ 04:[address] Mikel Soni MD) Biliary colic (Acute) - Physical Exam Vitals/I&O's: Vital Signs Temp Pulse Resp BP Pulse Ox 97.8 F 80 16 128/66 H 96 05/17/20 22:06 05/18/20 01:11 05/18/20 01:11 05/18/20 01:11 05/18/20 01:11 Oxygen Delivery Method Room Air Weight: 106.7 kg Body Mass Index (BMI) 40.4 General: Alert, Oriented x3, Cooperative HEENT: Atraumatic, PERRLA, EOMI, Normocephalic Neck: Supple, No JVD, Negative Carotid Bruits Lungs: Clear to auscultation, Normal air movement, No rhonchi, No wheeze, No rales Cardiovascular: Regular rate, Regular Rhythm, Normal S1, Normal S2, No murmurs Abdomen: Bowel Sounds Present, Soft, Tender - Epigastric area Extremities: No edema, Capillary Refill Less than 3 Seconds Skin: No rashes, No breakdown Musculoskeletal: No Tenderness to Palpation of Joints or Extremities Neurological: Cranial nerves II-XII grossly intact Psych/Mental Status: Normal Affect, Appropriate Laboratory Results 05/17/20 21:50: WBC 10.6, RBC 4.51, Hgb 12.9, Hct 39.3, MCV 87.1, MCH 28.6, MCHC 32.8, RDW Std Deviation 40.1, RDW Coeff of Johann 12.7, Plt Count 274, MPV 10.5, Immature Gran % (Auto) 0.800, Neut % (Auto) 64.0, Lymph % (Auto) 26.1, [place] % (Auto) 7.3, Eos % (Auto) 1.3, Baso % (Auto) 0.5, Absolute Neuts (auto) 6.8, Absolute Lymphs (auto) 2.77, Nucleated RBC % 0 05/17/20 21:50: Sodium 137, Potassium 4.0, Chloride 106, Carbon Dioxide 28.0, Anion Gap 3 L, BUN 11, Creatinine 0.68, Estim Creat Clear Calc 86.42, Est GFR (MDRD) Af Amer 118, Est GFR (MDRD) Non-Af 97, BUN/Creatinine Ratio 16.2, Glucose 114 H, Calcium 9.3, Total Bilirubin 0.30, Direct Bilirubin 0.14, AST 14 L, ALT 21, Alkaline Phosphatase 104, Total Protein 7.5, Albumin 3.7, Globulin 3.8, Lipase 554 H Assessment/Plan All Active Problems (Last Reviewed 05/18/20 @ 04:[address] 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 Biliary colic We will keep patient n.p.o. IV hydration with lactated Ringer's Trend CMP Ultrasound of gallbladder Consult general surgery. Elevated lipase Likely secondary to biliary colic. Unlikely pancreatitis since this is mildly elevation of lipase. Lactated Ringer's as above Morphine IV for pain Zofran IV PRN antiemetics. Repeat lipase in the a.m. Hypothyroidism Her TSH on 05/16/2020 was low. However her free T4 was normal. Also her free T3 was normal. On home levothyroxine. Levothyroxine secondary to n.p.o. status. Resume when necessary. DVT prophylaxis Since patient is surgical candidate we will hold off chemical thromboprophylaxis at this time. SCD ordered. Inpatient E&M: 56032 Init Hosp L3
--- NOTE | 2020-05-18 03:04 | US_ITS ---
STUDY: ABDOMINAL ULTRASOUND - RIGHT UPPER QUADRANT REASON FOR VISIT: Female, 49 years old biliary colic -- f/u ct done today TECHNIQUE: Ultrasound evaluation of the right upper quadrant was performed with real-time and static mcneill-scale imaging. TECHNICAL QUALITY: Adequate. COMPARISON: Comparison is made with prior CT scan of the abdomen and pelvis done earlier in the day. FINDINGS: Liver: The liver is enlarged and measures 20.9 cm. There is increased echogenicity consistent with fatty infiltration. The bile ducts are within normal limits. There is hepatic color flow. The direction of portal flow is hepatopetal. There is no demonstrated mass lesion. Gallbladder: There is a distended gallbladder. The gallbladder wall measures 1.9 mm. There is a negative sonographic Tanner''s sign. There is no pericholecystic fluid. There are no gallstones. Sludge is seen within the gallbladder lumen. There is a 3 mm gallbladder polyp. Common Bile Duct (C.B.D.): The common bile duct measures 5.2 mm. Pancreas: Normal size of the head, body and tail of the pancreas. There is increased echogenicity of the pancreas. There is no demonstrated pancreatic mass or cyst. Right Kidney: Normal size of the right kidney. The right kidney measures 11.8 cm x 4.9 cm x 5.8 cm. Normal renal cortex. The right cortex measures 1.3 cm. There is no demonstrated renal mass or cyst. There is no right hydronephrosis. US/Abdomen Limited IMPRESSION: Hepatomegaly and fatty infiltration of the liver. Mildly distended gallbladder containing sludge and a 3 mm gallbladder polyp. Electronically Signed: Ki Ayala, at 9:00 EDT , Service support ,
[2020-05-18] MEDS: Lactated Ringers 1,000 ML 150 ML IV ×3 (03:13→22:34)
[2020-05-18 05:09] LABS: Absolute Lymphocyte Count 2.85 X10^3/uL (0.83-4.51); Absolute Neutrophil Count 5.5 X10^3/uL (2.0-7.7); Basophil# 0.07 X10^3/uL; Basophil% 0.8 % (0-1); Eosinophil# 0.16 X10^3/uL; Eosinophils% 1.7 % (0-5); Hematocrit 36.4 % (37-47); Hemoglobin 11.8 g/dL (12.0-15.0); Lymphocyte # 2.85 X10^3/ul (4.0); Lymphocyte % 30.5 % (19-41); Mean Corp Hgb Conc 32.4 g/dL (32-36); Mean Corpuscular Hgb 29.1 pg (27.0-32.0); Mean Corpuscular Volume 89.9 fL (81-99); Mean Platelet Vol. 10.4 fl (6.2-12.0); Monocyte# 0.73 X10^3/uL; Monocyte% 7.8 % (0-10); NRBC Flagged by Analyzer 0 % (0-5); Neutrophil # 5.45 X10^3/uL (2.7-7.7); Neutrophil % 58.4 % (47-70); Platelet Count 235 K/mm3 (150-450); RBC Distribution Width CV 12.6 % (11.6-14.6); RBC Distribution Width SD 41.5 fl (35.1-43.9); Red Blood Count 4.05 M/mm3 (4.2-5.4); White Blood Count 9.3 K/mm3 (4.4-11.0)
[2020-05-18 05:29] LABS: ALB/GLOB Ratio 0.9 RATIO (0.9-2.4); AST(SGOT) 10 U/L (15-37); Alanine Aminotransfer ALT/SGPT 18 U/L (13-56); Albumin, Serum 3.1 g/dL (3.2-5.0); Alkaline Phosphatase 87 U/L (45-117); Anion Gap 6 (5-15); BUN 9 mg/dL (7-18); BUN/Creat Ratio 15.8 RATIO (10-20); Calcium,Total 8.6 mg/dL (8.5-10.1); Chloride 105 mmol/L (98-107); Creatinine, Serum 0.57 mg/dL (0.55-1.02); EST Glomerular Filtration Rate 119 mL/min (>60); Est Glom Filt Rate - Afr Amer 144 mL/min (>60); Globulin 3.4 g/dL (2.2-4.2); Glucose 99 mg/dL (74-106); Lipase 592 U/L (73-393); Potassium 3.7 mmol/L (3.5-5.1); Protein, Total 6.5 g/dL (6.4-8.2); Sodium Level 139 mmol/L (136-145)
[2020-05-18 08:36] LABS: Free T3 2.5 pg/mL (2.18-3.98); T4 Free Direct 1.04 ng/dL (0.76-1.46)
--- NOTE | 2020-05-18 09:54 | PN_ITS ---
Patient Problems: Active and Suspected Problems (Last Reviewed 05/18/20 @ 05:[address] Mikel Soni MD) Biliary colic (Acute) Subjective: Feeling better, but still with RUQ abdominal pain. Vitals/I&O's: Vital Signs Temp Pulse Resp BP Pulse Ox 36.8 C 71 16 100/54 L 97 05/18/20 02:50 05/18/20 02:50 05/18/20 02:50 05/18/20 02:50 05/18/20 02:50 Oxygen Delivery Method Room Air Weight: 105.8 kg Body Mass Index (BMI) 40.0 Intake and Output for Last 24 Hours 05/16/20 05/17/20 05/18/20 23:59 23:59 23:59 Intake Total 0 / 0 Balance 0 / 0 General: Alert, No apparent distress HEENT: Atraumatic, Normocephalic Oral: Moist Mucosa, No Gingival or Mucosal Lesions/ Ulcerations Neck: No Nodes, Thyroid Normal Size and Texture Lungs: Clear to auscultation, Normal air movement, No rhonchi, No wheeze, No rales Cardiovascular: Regular rate, Regular Rhythm, Normal S1, Normal S2, No murmurs Abdomen: Bowel Sounds Present, Soft, Non Tender, Non-Distended, No Hepato- splenomegaly Extremities: No edema, No Calf Tenderness Laboratory Results 05/17/20 21:50: WBC 10.6, RBC 4.51, Hgb 12.9, Hct 39.3, MCV 87.1, MCH 28.6, MCHC 32.8, RDW Std Deviation 40.1, RDW Coeff of Johann 12.7, Plt Count 274, MPV 10.5, Immature Gran % (Auto) 0.800, Neut % (Auto) 64.0, Lymph % (Auto) 26.1, [place] % (Auto) 7.3, Eos % (Auto) 1.3, Baso % (Auto) 0.5, Absolute Neuts (auto) 6.8, Absolute Lymphs (auto) 2.77, Nucleated RBC % 0 05/17/20 21:50: Sodium 137, Potassium 4.0, Chloride 106, Carbon Dioxide 28.0, Anion Gap 3 L, BUN 11, Creatinine 0.68, Estim Creat Clear Calc 86.42, Est GFR (MDRD) Af Amer 118, Est GFR (MDRD) Non-Af 97, BUN/Creatinine Ratio 16.2, Glucose 114 H, Calcium 9.3, Total Bilirubin 0.30, Direct Bilirubin 0.14, AST 14 L, ALT 21, Alkaline Phosphatase 104, Total Protein 7.5, Albumin 3.7, Globulin 3.8, Lipase 554 H 05/18/20 04:50: WBC 9.3, RBC 4.05 L, Hgb 11.8 L, Hct 36.4 L, MCV 89.9, MCH 29.1, MCHC 32.4, RDW Std Deviation 41.5, RDW Coeff of Johann 12.6, Plt Count 235, MPV 10.4, Immature Gran % (Auto) 0.800, Neut % (Auto) 58.4, Lymph % (Auto) 30.5, [place] % (Auto) 7.8, Eos % (Auto) 1.7, Baso % (Auto) 0.8, Absolute Neuts (auto) 5.5, Absolute Lymphs (auto) 2.85, Nucleated RBC % 0 05/18/20 04:50: Sodium 139, Potassium 3.7, Chloride 105, Carbon Dioxide 28.0, Anion Gap 6, BUN 9, Creatinine 0.57, Estim Creat Clear Calc 103.10, Est GFR (MDRD) Af Amer 144, Est GFR (MDRD) Non-Af 119, BUN/Creatinine Ratio 15.8, Glucose 99, Calcium 8.6, Total Bilirubin 0.40, AST 10 L, ALT 18, Alkaline Phosphatase 87, Total Protein 6.5, Albumin 3.1 L, Globulin 3.4, Albumin/Globulin Ratio 0.9, Lipase 592 H 05/18/20 04:50: Free T4 1.04, Free T3 pg/dL 2.5 Current Medications Lactated Ringer's () 1,000 mls @ 150 mls/hr IV .Q6H40M [facility] Last Admin: 05/18/20 03:13 Dose: 150 mls/hr Documented by: Morphine Sulfate () 2 mg IV Q3H PRN PRN PRN Reason: Pain Score 6-10/10 Ondansetron HCl (Zofran) 4 mg IV Q6H PRN PRN PRN Reason: NAUSEA/VOMITING Sodium Chloride () 10 - 40 ml IV UD PRN PRN Reason: SALINE FLUSH Medical Necessity - Tobacco Use Smoking Status: Former smoker Assessment/Plan All Active Problems (Last Reviewed 05/18/20 @ 05:[address] Mikel Soni MD) Biliary colic (Acute) 1. biliary colic * DW Dr. Sarabia, plan for lap aleks today 2. hypothyroidism * Free T4 and Free T3 normal. * continue levothyroxine * no additional work up at this time. 3. VTE prophylaxis: SCDs Procedures: Other Procedure - See Report - non billable rounding as pt seen after midnight.
--- NOTE | 2020-05-18 09:55 | CON.PCM_ITS ---
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 Her pain radiated to her right upper quadrant and to her right middle back. She describes her pain as sharp. Her pain started while she was eating dinner. Highest severity of her pain is 5 out of 10. With a history of gastric bypass she typically have a pain when she takes bigger bites of food as a bigger bites of food gets stuck in her GI tract. So she told that she might had taken bigger bite of food. She tried easing her pain by walking around. However because her pain was not getting any better her brought her to the emergency department. Her pain improves with lying in the position. Also her pain improved with morphine given at emergency department .Her pain worsens with body movements. Associated with symptoms is nausea without vomiting. She denies fever or chills. CT of the abdomen and pelvis at the emergency department showed distended gallbladder without any stones seen. It also showed small pleural-based nodule at the left lower lobe; and mild to moderate constipation. However patient does not feel constipated. The last time her bowels moved was in the morning of the day of her presentation. At the ED her lipase was mildly elevated. Gallbladder: There is a distended gallbladder. The gallbladder wall measures 1.9 mm. There is a negative sonographic Tanner''s sign. There is no pericholecystic fluid. There are no gallstones. Sludge is seen within the gallbladder lumen. There is a 3 mm gallbladder polyp. Common Bile Duct (C.B.D.): The common bile duct measures 5.2 mm. Past Medical History Medical History: Medical History (Last Reviewed 05/18/20 @ 09:[address] 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 David Sarabia MD) History of Z98.891 x3 History of bariatric surgery Z98.84 History of hysterectomy Z90.710 History of right knee surgery Z98.890 History of tonsillectomy Z90.89 Smoking Status: Former smoker Alcohol: Occasional - *Family History Maternal Family History: Family History (Last Reviewed 05/18/20 @ 05:[address] Mikel Soni MD) Mother Anxiety Depression Hypertension Thyroid disorder Father Arthritis Autoimmune disorder Cancer Grandfather Suicide Daughter Seizures Review of Systems Constitutional: Denies: Chills, Fever, Weight Change Cardiovascular: Denies: Chest Pain, Chest Pressure, Chest Tightness, Palpitations Respiratory: Denies: Cough, Hemoptysis, Shortness of breath at rest, Shortness of breath upon exertion, Wheezing Gastrointestinal: Reports: Abdominal Pain, Nausea. Denies: Vomiting Patient Problems: Active and Suspected Problems (Last Reviewed 05/18/20 @ 05:[address] Mikel Soni MD) Biliary colic (Acute) Gallbladder sludge (Acute) Right upper quadrant abdominal pain (Acute) - Physical Exam Vitals/I&O's: Vital Signs Temp Pulse Resp BP Pulse Ox 98.2 F 71 16 100/54 L 97 05/18/20 02:50 05/18/20 02:50 05/18/20 02:50 05/18/20 02:50 05/18/20 02:50 Oxygen Delivery Method Room Air Weight: 233 lb 4 oz Body Mass Index (BMI) 40.0 Intake and Output for Last 24 Hours 05/16/20 05/17/20 05/18/20 23:59 23:59 23:59 Intake Total 0 / 0 Balance 0 / 0 General: Alert, Oriented x3 Lungs: Clear to auscultation Cardiovascular: Regular rate, Regular Rhythm, No murmurs Abdomen: Soft, Tender - Patient is tender in the right upper quadrant. She has no rebound guarding or peritoneal signs identified. Laboratory Results 05/17/20 21:50: WBC 10.6, RBC 4.51, Hgb 12.9, Hct 39.3, MCV 87.1, MCH 28.6, MCHC 32.8, RDW Std Deviation 40.1, RDW Coeff of Johann 12.7, Plt Count 274, MPV 10.5, Immature Gran % (Auto) 0.800, Neut % (Auto) 64.0, Lymph % (Auto) 26.1, [place] % (Auto) 7.3, Eos % (Auto) 1.3, Baso % (Auto) 0.5, Absolute Neuts (auto) 6.8, Absolute Lymphs (auto) 2.77, Nucleated RBC % 0 05/17/20 21:50: Sodium 137, Potassium 4.0, Chloride 106, Carbon Dioxide 28.0, Anion Gap 3 L, BUN 11, Creatinine 0.68, Estim Creat Clear Calc 86.42, Est GFR (MDRD) Af Amer 118, Est GFR (MDRD) Non-Af 97, BUN/Creatinine Ratio 16.2, Glucose 114 H, Calcium 9.3, Total Bilirubin 0.30, Direct Bilirubin 0.14, AST 14 L, ALT 21, Alkaline Phosphatase 104, Total Protein 7.5, Albumin 3.7, Globulin 3.8, Lipase 554 H 05/18/20 04:50: WBC 9.3, RBC 4.05 L, Hgb 11.8 L, Hct 36.4 L, MCV 89.9, MCH 29.1, MCHC 32.4, RDW Std Deviation 41.5, RDW Coeff of Johann 12.6, Plt Count 235, MPV 10.4, Immature Gran % (Auto) 0.800, Neut % (Auto) 58.4, Lymph % (Auto) 30.5, [place] % (Auto) 7.8, Eos % (Auto) 1.7, Baso % (Auto) 0.8, Absolute Neuts (auto) 5.5, Absolute Lymphs (auto) 2.85, Nucleated RBC % 0 05/18/20 04:50: Sodium 139, Potassium 3.7, Chloride 105, Carbon Dioxide 28.0, Anion Gap 6, BUN 9, Creatinine 0.57, Estim Creat Clear Calc 103.10, Est GFR (MDRD) Af Amer 144, Est GFR (MDRD) Non-Af 119, BUN/Creatinine Ratio 15.8, Glucose 99, Calcium 8.6, Total Bilirubin 0.40, AST 10 L, ALT 18, Alkaline Phosphatase 87, Total Protein 6.5, Albumin 3.1 L, Globulin 3.4, Albumin/Globulin Ratio 0.9, Lipase 592 H 05/18/20 04:50: Free T4 1.04, Free T3 pg/dL 2.5 Current Medications Lactated Ringer's () 1,000 mls @ 150 mls/hr IV .Q6H40M [facility] Last Admin: 05/18/20 03:13 Dose: 150 mls/hr Documented by: Morphine Sulfate () 2 mg IV Q3H PRN PRN PRN Reason: Pain Score 6-10/10 Ondansetron HCl (Zofran) 4 mg IV Q6H PRN PRN PRN Reason: NAUSEA/VOMITING Sodium Chloride () 10 - 40 ml IV UD PRN PRN Reason: SALINE FLUSH Assessment/Plan All Active Problems (Last Reviewed 05/18/20 @ 05:[address] Mikel Soni MD) Biliary colic (Acute) Gallbladder sludge (Acute) Right upper quadrant abdominal pain (Acute) I think the best thing to do here is to perform a laparoscopic cholecystectomy with intraoperative cholangiograms. Risk benefits of the procedure have been reviewed with the patient the patient has had the opportunity to ask questions and all of her questions have been answered. She is willing to proceed. These risks are included with bleeding and infection possible injury to surrounding structures which could require further surgeries. Patient also understands that blood clots heart attacks pneumonia strokes up to and including are possibilities however unlikely. Office Visits / Consults: [id number] IP Consult L4 - Modifier 57
[2020-05-18] MEDS: Lactated Ringers 1,000 ML 100 ML IV (12:31)
--- NOTE | 2020-05-18 12:41 | RAD_ITS ---
STUDY: INTRAOPERATIVE CHOLANGIOGRAM. REASON FOR EXAM: Female, 49 years old. LAP MARISSA FLUOROSCOPY TIME (if supplied): ( 14.7 seconds ) minutes/seconds. A single loop of 105 images were submitted. TECHNIQUE: An intraoperative quadrant was performed by the surgeon. Imaging was performed. COMPARISON: None. FINDINGS: The intra and extrahepatic biliary ducts are unremarkable. No intraluminal filling defect is seen. There is free flow of contrast into the duodenum. RAD/Cholangiogram/ O R,Initial IMPRESSION: Unremarkable intraoperative cholangiogram. Electronically Signed: Ki Ayala, at 13:37 EDT , Service support ,
--- NOTE | 2020-05-18 12:49 | PCM.OPRPT ---
Problem List (1) Biliary colic Status: Acute (2) Gallbladder sludge Status: Acute (3) Right upper quadrant abdominal pain Status: Acute Report of Operation Date of Procedure: 05/18/20 Pre-Operative Diagnosis: 1. Biliary colic. 2. Gallbladder sludge. 3. Right upper quadrant abdominal pain Post-Operative Diagnosis: Same Surgery/Procedure Performed:: Laparoscopic cholecystectomy with intraoperative cholangiograms Type of Anesthesia:: General Anesthesiologist: Sourav Davis Specimen's removed: Gallbladder Estimated Blood Loss (mL): < 25 cc Description of Procedure: Patient was brought into the operating room placed in the supine position. Under excellent general trach intubation the abdomen was sterilely prepped and draped in usual fashion. Local was injected supraumbilically. Dissection was carried down to the fascia. The fascia was grasped with a Vin. Varies needle was placed inside the abdomen. The abdomen was insufflated to 15 torr. A 10/12 trocar was placed without difficulty. Patient was placed in the head up and rotated to the left position. Subxiphoid #5 trocar was placed, inferior to this another #5 trocar was placed, laterally a #5 trocar was placed. All these under direct visualization without injury to underlying structures. Fundus of the gallbladder was grasped retracted cephalad direction. I dissected out the cystic duct. I placed a clip proximally on the cystic duct. Skin larissa was made. Angiogram catheter was placed through the skin cholangiogram catheter through this. I shot a cholangiogram which showed normal ductal anatomy and no stones within the duct. I removed the cholangiogram catheter in place another clip on the cystic duct. Identified the cystic artery. Placed hemoclips proximally and distally ligated. I did achieve good pneumostasis. Placed a specimen specimen bag delivered through the umbilical port without difficulty. Reinflated the abdomen irrigated the right upper quadrant the liver bed did look raw but I had no active bleeding. I did place Monica into the liver bed. Trochars removed under direct visualization hemostasis was noted. Fascia the umbilical port was closed with a [id number] stitch of 0 Vicryl skin incisions were closed with subcuticular stitches of 4-0 Monocryl Steri-Strips were applied sterile dressings were applied and the patient tolerated the procedure well - Admit VTE Documentation VTE Present on Admission: No VTE Mechan Device Prophylaxis: SCD's VTE Pharm Prophylaxis ordered?: No Reason prophylaxis not ordered:: Treatment Not Indicated [id number]: [id number] Laparo cholecystectomy/graph
[2020-05-18] MEDS: Bupivacaine Mpf 0.5% 30 ML VIAL (13:40)
--- NOTE | 2020-05-18 22:56 | NURSING ---
assisted pt up to BR, upon return to bed, bleeding was noted around distal lapsite, soaking through dressing. dressing was reinforced with 4x4s. will continue to monitor.
[2020-05-19 00:33] VITALS: BP 132/73; PULSE 98; RESP 18; TEMP 37.1; O2SAT 94
[2020-05-19 04:23] VITALS: BP 134/71; PULSE 95; RESP 18; TEMP 36.9; O2SAT 97
[2020-05-19] MEDS: Lactated Ringers 1,000 ML 150 ML IV (04:56)
[2020-05-19 07:07] VITALS: O2SAT 95
[2020-05-19 07:34] LABS: Absolute Lymphocyte Count 1.02 X10^3/uL (0.83-4.51); Absolute Neutrophil Count 12.5 X10^3/uL (2.0-7.7); Basophil# 0.05 X10^3/uL; Basophil% 0.3 % (0-1); Eosinophil# 0.03 X10^3/uL; Eosinophils% 0.2 % (0-5); Hematocrit 34.8 % (37-47); Hemoglobin 11.7 g/dL (12.0-15.0); Lymphocyte # 1.02 X10^3/ul (4.0); Mean Corp Hgb Conc 33.6 g/dL (32-36); Mean Corpuscular Hgb 29.5 pg (27.0-32.0); Mean Corpuscular Volume 87.9 fL (81-99); Mean Platelet Vol. 10.2 fl (6.2-12.0); Monocyte# 0.97 X10^3/uL; Monocyte% 6.6 % (0-10); NRBC Flagged by Analyzer 0 % (0-5); Neutrophil # 12.49 X10^3/uL (2.7-7.7); Neutrophil % 85.4 % (47-70); Platelet Count 216 K/mm3 (150-450); RBC Distribution Width CV 12.5 % (11.6-14.6); RBC Distribution Width SD 40.3 fl (35.1-43.9); Red Blood Count 3.96 M/mm3 (4.2-5.4); White Blood Count 14.6 K/mm3 (4.4-11.0)
[2020-05-19 08:00] LABS: ALB/GLOB Ratio 0.9 RATIO (0.9-2.4); AST(SGOT) 42 U/L (15-37); Alanine Aminotransfer ALT/SGPT 51 U/L (13-56); Albumin, Serum 2.9 g/dL (3.2-5.0); Alkaline Phosphatase 82 U/L (45-117); Anion Gap 5 (5-15); BUN 6 mg/dL (7-18); BUN/Creat Ratio 10.7 RATIO (10-20); Calcium,Total 8.7 mg/dL (8.5-10.1); Chloride 105 mmol/L (98-107); Creatinine, Serum 0.56 mg/dL (0.55-1.02); EST Glomerular Filtration Rate 122 mL/min (>60); Est Glom Filt Rate - Afr Amer 147 mL/min (>60); Estimated Creatinine Clearance 104.94 ml/min; Globulin 3.3 g/dL (2.2-4.2); Glucose 104 mg/dL (74-106); Potassium 3.8 mmol/L (3.5-5.1); Protein, Total 6.2 g/dL (6.4-8.2); Sodium Level 140 mmol/L (136-145)
[2020-05-19 08:59] VITALS: BP 109/69; PULSE 99; RESP 16; TEMP 36.7; O2SAT 94
--- NOTE | 2020-05-19 09:31 | DCINST_ITS ---
Discharge Diet: Light diet - advance as tolerated Discharge Activity: May Not Drive - for 2-3 days or while taking narcotic pain medications., - - Do not drive, work heavy equipment or sign legal documents for 24 hours. May shower in (days): 1 - with the bandage in place. Additional Activity Instructions:: Pain medication may cause nausea. You should typically eat light foods as you take your pain medications. Pain medication may also cause constipation. If this is a problem for you, please discuss with your doctor. Call your doctor if your incision/area has: Continuous Slow Oozing, Sudden Increased Bleeding, Increased Pain/ Swelling, Increased Redness, Foul Smelling Discharge Call your doctor if you observe: Fever of 101 or Higher Suture Line Care: Avoid Pulling/Pushing, Avoid Pinching/Bending Additional Dressing/Incision Instructions:: Leave operative bandaids on for 2 days. When you remove dressing, leave Steri-Strips on until your follow-up appointment, or until the Steri-Strips fall off on their own. Allergies/Adverse Reactions: Allergies cephalexin [From Keflex] Allergy (Verified 02/02/20 08:17) Unknown Medications to take at Discharge levothyroxine 150 mcg tablet 150 mcg PO DAILY 06/16/19 Escitalopram Oxalate [Lexapro] 20 mg PO DAILY 05/18/20 Primary Care Physician: Larry Armas MD [Primary Care Provider] - Test Results: Test results from this visit will be discussed in further detail at your follow- up appointment, if applicable. Please Follow Up With: David Sarabia MD - Please call [phone] to schedule an appointment. When: 7 days after your surgery.
--- NOTE | 2020-05-19 09:33 | PN.SURG_ITS ---
Patient Problems: Active and Suspected Problems (Last Reviewed 05/18/20 @ 09:[address] David Sarabia MD) Biliary colic (Acute) Gallbladder sludge (Acute) Right upper quadrant abdominal pain (Acute) Subjective: Patient has appropriate incisional pain. She is also experiencing some shoulder pain. She is not experiencing any intra-abdominal discomfort. Objective: We will need to change the dressing at the umbilical area but all the others are dry her abdomen is soft - Physical Exam Vitals/I&O's: Vital Signs Temp Pulse Resp BP Pulse Ox 98.0 F 99 16 109/69 94 05/19/20 08:59 05/19/20 08:59 05/19/20 08:59 05/19/20 08:59 05/19/20 08:59 Oxygen Flow Rate (L/min) 2 Oxygen Delivery Method Room Air Weight: 233 lb 3.985 oz Body Mass Index (BMI) 40.0 Intake and Output for Last 24 Hours 05/17/20 05/18/20 05/19/20 23:59 23:59 23:59 Intake Total 2439.33 / 2439.33 955 / 955 Output Total 900 / 900 Balance 2439.33 / 2439.33 55 / 55 Laboratory Results 05/19/20 07:20: WBC 14.6 H, RBC 3.96 L, Hgb 11.7 L, Hct 34.8 L, MCV 87.9, MCH 29.5, MCHC 33.6, RDW Std Deviation 40.3, RDW Coeff of Johann 12.5, Plt Count 216, MPV 10.2, Immature Gran % (Auto) 0.500, Neut % (Auto) 85.4 H, Lymph % (Auto) 7.0 L, Hickory % (Auto) 6.6, Eos % (Auto) 0.2, Baso % (Auto) 0.3, Absolute Neuts (auto) 12.5 H, Absolute Lymphs (auto) 1.02, Nucleated RBC % 0 05/19/20 07:20: Sodium 140, Potassium 3.8, Chloride 105, Carbon Dioxide 30.0, Anion Gap 5, BUN 6 L, Creatinine 0.56, Estim Creat Clear Calc 104.94, Est GFR (MDRD) Af Amer 147, Est GFR (MDRD) Non-Af 122, BUN/Creatinine Ratio 10.7, Glucose 104, Calcium 8.7, Total Bilirubin 0.50, AST 42 H, ALT 51, Alkaline Phosphatase 82, Total Protein 6.2 L, Albumin 2.9 L, Globulin 3.3, Albumi n/Globulin Ratio 0.9 Current Medications Lactated Ringer's () 1,000 mls @ 150 mls/hr IV .Q6H40M KONRAD Last Admin: 05/19/20 04:56 Dose: 150 mls/hr Documented by: Morphine Sulfate () 2 mg IV Q3H PRN PRN PRN Reason: Pain Score 6-10/10 Ondansetron HCl (Zofran) 4 mg IV Q6H PRN PRN PRN Reason: NAUSEA/VOMITING Sodium Chloride () 10 - 40 ml IV UD PRN PRN Reason: SALINE FLUSH Medical Necessity - Tobacco Use Smoking Status: Former smoker Assessment/Plan All Active Problems (Last Reviewed 05/18/20 @ 09:[address] David Sarabia MD) Biliary colic (Acute) Gallbladder sludge (Acute) Right upper quadrant abdominal pain (Acute) Patient is okay to be discharged
--- NOTE | 2020-05-19 09:34 | DS.PCM_ITS ---
Discharge Date and Diagnosis - Problem List Patient Problems: Active and Suspected Problems (Last Reviewed 05/18/20 @ 09:[address] David Sarabia MD) Biliary colic (Acute) Gallbladder sludge (Acute) Right upper quadrant abdominal pain (Acute) Date of Admission: 05/18/20 Date of Discharge: 05/19/20 - Primary Discharge Diagnosis Acute Problems: Active Problems (Last Reviewed 05/18/20 @ 09:[address] David Sarabia MD) Biliary colic (Acute) Gallbladder sludge (Acute) Right upper quadrant abdominal pain (Acute) Hospital Course and Treatment Imaging Results: Clinical Impression(s) from Imaging Studies Abdomen/Pelvis CT 05/17/20 22:20 IMPRESSION: Slightly larger hiatal hernia and mild wall thickening. Postoperative changes status post gastric bypass. Nonspecific distended gallbladder could consider gallbladder ultrasound. Sxkr-qg-[id number] constipation. There is a minimal midline umbilical hernia with nearby slight bulge nondistended small bowel. Status post hysterectomy. Small pleural-based nodule left lower lobe, measuring 6.6 mm recommend follow-up CT scan of the chest in 6 months to ensure stability. Electronically Signed: Jackie Darling MD at 0:55 EDT Tel , Service support , Abdomen Ultrasound 05/18/20 03:04 IMPRESSION: Hepatomegaly and fatty infiltration of the liver. Mildly distended gallbladder containing sludge and a 3 mm gallbladder polyp. Electronically Signed: Ki Ayala, at 9:00 EDT , Service support , Cholangiogram 05/18/20 12:41 IMPRESSION: Unremarkable intraoperative cholangiogram. Electronically Signed: Ki Ayala, at 13:37 EDT , Service support , Jayden Sarabia, general surgery Operations: cholecystecomy Procedures: None Summary of Care Provided: The patient is a 49 year old F with abdominal pain. Patient had a who has history of biliary colic but surgery was postponed due to some thyroid issues patient has that time. Patient never followed up. Patient presented to again today with abdominal pain. Ultrasound showed mildly distended gallbladder containing sludge and a 3 mm gallbladder. Admitted to the medical service with a consultation to general surgery. Patient underwent a laparoscopic cholecystectomy on the . Patient tolerated the procedure well. Patient has been feeling well and abdominal pain is much improved. Did inquire if the patient will require any narcotic medications upon discharge, she declined. Will be discharged home today in stable condition. [] Patient Problems: Active and Suspected Problems (Last Reviewed 05/18/20 @ 09:[address] David Sarabia MD) Biliary colic (Acute) Gallbladder sludge (Acute) Right upper quadrant abdominal pain (Acute) - Physical Exam Vitals/I&O's: Vital Signs Temp Pulse Resp BP Pulse Ox 36.7 C 99 16 109/69 94 05/19/20 08:59 05/19/20 08:59 05/19/20 08:59 05/19/20 08:59 05/19/20 08:59 Oxygen Flow Rate (L/min) 2 Oxygen Delivery Method Room Air Weight: 105.8 kg Body Mass Index (BMI) 40.0 Intake and Output for Last 24 Hours 05/17/20 05/18/20 05/19/20 23:59 23:59 23:59 Intake Total 2439.33 / 2439.33 955 / 955 Output Total 900 / 900 Balance 2439.33 / 2439.33 55 / 55 General: Alert, No apparent distress HEENT: Atraumatic, Normocephalic Abdomen: Soft, Non Tender, Non-Distended Psych/Mental Status: Normal Affect, Appropriate Laboratory Results 05/19/20 07:20: WBC 14.6 H, RBC 3.96 L, Hgb 11.7 L, Hct 34.8 L, MCV 87.9, MCH 29.5, MCHC 33.6, RDW Std Deviation 40.3, RDW Coeff of Johann 12.5, Plt Count 216, MPV 10.2, Immature Gran % (Auto) 0.500, Neut % (Auto) 85.4 H, Lymph % (Auto) 7.0 L, Weld % (Auto) 6.6, Eos % (Auto) 0.2, Baso % (Auto) 0.3, Absolute Neuts (auto) 12.5 H, Absolute Lymphs (auto) 1.02, Nucleated RBC % 0 05/19/20 07:20: Sodium 140, Potassium 3.8, Chloride 105, Carbon Dioxide 30.0, Anion Gap 5, BUN 6 L, Creatinine 0.56, Estim Creat Clear Calc 104.94, Est GFR (MDRD) Af Amer 147, Est GFR (MDRD) Non-Af 122, BUN/Creatinine Ratio 10.7, Glucose 104, Calcium 8.7, Total Bilirubin 0.50, AST 42 H, ALT 51, Alkaline Phosphatase 82, Total Protein 6.2 L, Albumin 2.9 L, Globulin 3.3, Albumin/Globulin Ratio 0.9 Current Medications Lactated Ringer's () 1,000 mls @ 150 mls/hr IV .Q6H40M KONRAD Last Admin: 05/19/20 04:56 Dose: 150 mls/hr Documented by: Morphine Sulfate () 2 mg IV Q3H PRN PRN PRN Reason: Pain Score 6-10/10 Ondansetron HCl (Zofran) 4 mg IV Q6H PRN PRN PRN Reason: NAUSEA/VOMITING Sodium Chloride () 10 - 40 ml IV UD PRN PRN Reason: SALINE FLUSH Discharge Diet: Light diet - advance as tolerated Discharge Activity: May Not Drive - for 2-3 days or while taking narcotic pain medications., - - Do not drive, work heavy equipment or sign legal documents for 24 hours. Return to work on:: 06/06/20 May shower in (days): 1 - with the bandage in place. Additional Activity Instructions:: Pain medication may cause nausea. You should typically eat light foods as you take your pain medications. Pain medication may also cause constipation. If this is a problem for you, please discuss with your doctor. Call your doctor if your incision/area has: Continuous Slow Oozing, Sudden Increased Bleeding, Increased Pain/ Swelling, Increased Redness, Foul Smelling D ischarge Call your doctor if you observe: Fever of 101 or Higher Suture Line Care: Avoid Pulling/Pushing, Avoid Pinching/Bending Additional Dressing/Incision Instructions:: Leave operative bandaids on for 2 days. When you remove dressing, leave Steri-Strips on until your follow-up appointment, or until the Steri-Strips fall off on their own. Home Medications: Medications to take at Discharge levothyroxine 150 mcg tablet 150 mcg PO DAILY 06/16/19 Escitalopram Oxalate [Lexapro] 20 mg PO DAILY 05/18/20 Acetaminophen 1,000 mg PO TID PRN #1 tab 05/19/20 Ibuprofen 600 mg PO 4X/DAY PRN #1 tab 05/19/20 Oxycodone HCl/Acetaminophen [Percocet 5/325] 1 - 2 tab PO Q4H PRN PRN 6 Days #30 tab 05/19/20 Following Prescriptions Were Given to Patient: Acetaminophen 1,000 mg PO TID PRN #1 tab PRN Reason: Pain Or Fever Transmission Status: Pending to [facility] Ibuprofen 600 mg PO 4X/DAY PRN #1 tab PRN Reason: Pain Or Fever Transmission Status: Pending to [facility] Oxycodone HCl/Acetaminophen [Percocet 5/325] 1 - 2 tab PO Q4H PRN PRN 6 Days #30 tab PRN Reason: Pain Transmission Status: Sent to [facility] Primary Care Physician: Larry Armas MD [Primary Care Provider] - Please Follow Up With: David Sarabia MD - Please call [phone] to schedule an appointment. When: 7 days after your surgery. Disposition: Home Minutes spent on discharge:: 28 Patient Condition:: Good Medical Necessity - Tobacco Use Smoking Status: Former smoker Meaningful Use Info Meaningful Use Diagnoses (Choose all that apply): None applicable Inpatient E&M: 88182 Disch Hosp
--- NOTE | 2020-05-19 09:39 | PCM.WORK.EX ---
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
--- NOTE | 2020-05-19 10:45 | CASEMGMT ---
RN CM Face to Face with patient for initial transition planning/care coordination assessment. RN CM introduced self and role at [facility]. Patient lying in bed, alert and oriented. Patient willing to participate in assessment and is able to answer all questions appropriately. Care providers, pharmacy, and demographics verified. Patient wishes to discharge home, denies need for home health at this time. Patient states she has no further needs or concerns at this time. CM to follow for discharge planning needs that may arise. PCP: Larry Armas Specialists: None Preferred Pharmacy: [facility] Insurance: [facility] Prescription Benefit: yes Living Will/HPOA: none LNOK: Living Arrangements: Patient lives with in a 1 story home with 2 steps and railing to enter the home. Patient is independent at home. Transportation: self/ DME/HHC: Patient states she has Cpap at home. Patient denies further DME or previous HHC. Disposition Plan: Patient to discharge home with family support and follow-up plans in place. Keyanna SHANE, RN, CM
[2020-05-19 13:26] VITALS: BP 138/72; PULSE 111; RESP 18; TEMP 37.2; O2SAT 93
== END 2020-05-19 14:07 | disposition home or self-care (01) | DRG 419 ==
LOC: ED 05-18 → MS3 05-18 02:00
PROVIDERS: Emergency Medicine; Surgery; Admitting Provider Hospitalist; Emergency Provider Emergency Medicine; PCP Family Medicine
PROC: 0FT44ZZ Resection of Gallbladder, Percutaneous Endoscopic Approach (ICD-10-PCS; principal; 2020-05-18 11:45)
DX: K82.4 Cholesterolosis of gallbladder (principal); E11.9 Type 2 diabetes mellitus without complications; E06.3 Autoimmune thyroiditis; F32.9 Major depressive disorder, single episode, unspecified; Z98.84 Bariatric surgery status; Z87.891 Personal history of nicotine dependence
CPT/HCPCS: 36415; 74177; 74300; 76000; 76705; 80048; 80053; 80076; 83690; 84439; 84481; 85025; 88304; 99251; 99282; J7120; Q9967; A4216; G0463; J2405

== ENCOUNTER → 2020-06-14 16:40 | Outpatient (CLI) | payer OTHER, SELFPAY ==
[2020-02-02 08:49] VITALS: BMI 38.2
[2020-05-18 10:32] VITALS: BMI 40.0
--- NOTE | 2020-06-14 16:27 | BI_ITS ---
MAMMOGRAPHY - BILATERAL SCREENING REASON FOR EXAM: Female, 49 years old. Routine annual screening examination. PERTINENT HISTORY: Non-contributory. TECHNIQUE: Digital bilateral breast kenneth (3D mammographic acquisition) in the CC and MLO projections. 2-D mediolateral oblique (MLO) and craniocaudad (CC) views of both breasts were obtained. CAD: Full Field Digital Mammography with Computer Added Detection was performed. COMPARISON: Comparison is made with prior study dated 05/06/2019 and 09/12/2017. FINDINGS: Breast Composition: The breasts are heterogeneously dense, which may obscure small masses. There are no dominant masses or suspicious calcifications. Stable benign-appearing bilateral axillary lymph nodes. No other significant abnormalities are identified. There has been no significant change since the prior study. BI/SCREEN MAMM (CAD) W/KENNETH BILAT IMPRESSION: Stable bilateral screening mammogram. Yearly follow-up mammogram recommended. (A) ASSESSMENT CATEGORY: BIRADS Category 2: Benign. A letter regarding these results will be sent to the patient by the facility within 30 days. Approximately 10% of breast cancers are not detected by mammography. A normal mammogram should not delay biopsy of a clinically suspicious abnormality. [id number] Electronically Signed: Ki Ayala, at 8:23 EDT , Service support ,
== END ==
PROVIDERS: PCP Family Medicine; Referring Provider Nurse Practitioner Adult Health; Visit Provider Nurse Practitioner Adult Health
DX: Z12.31 Encounter for screening mammogram for malignant neoplasm of breast (principal)
CPT/HCPCS: 77063; 77067

== ENCOUNTER → 2020-08-11 13:06 | Outpatient (CLI) | payer OTHER, SELFPAY ==
--- NOTE | 2020-08-11 13:10 | RAD_ITS ---
STUDY: X-RAY - LEFT KNEE REASON FOR EXAM: Left knee pain for 2 weeks. TECHNIQUE: 4 view(s) of the knee. COMPARISON: Radiographs of the left tibia and fibula 01/20/2019. FINDINGS: Normal visualized distal femur. Normal visualized proximal tibia and fibula. Normal proximal tibiofibular articulation. Normal medial femorotibial compartment. Normal lateral femorotibial compartment. Normal patellofemoral articulation. The soft tissue structures are unremarkable. RAD/Knee 4 or More Views IMPRESSION: Normal x-ray examination of the left knee. Electronically Signed: Edil Gan MD at 14:11 EST Tel , Service support ,
== END ==
PROVIDERS: PCP Family Medicine; Referring Provider Family Medicine; Visit Provider Family Medicine
DX: M25.562 Pain in left knee (principal)
CPT/HCPCS: 73564

== ENCOUNTER → 2020-08-22 16:06 | Outpatient (CLI) | payer OTHER, SELFPAY ==
[2020-05-18 10:32] VITALS: BMI 40.0
--- NOTE | 2020-08-22 16:07 | MRI_ITS ---
STUDY: MRI LEFT KNEE REASON FOR EXAM: Female, 49 years old. left knee pain, posterior x 5 weeks TECHNIQUE: Standardized fat and water weighted pulse sequences were obtained in all 3 orthogonal planes. COMPARISON: Left knee x-ray dated August 11, 2020 FINDINGS: A small free edge radial tear is present in the middle one third aspect of the posterior horn of the medial meniscus see image #10 series 5. Normal anterior horn and body of the medial meniscus. Normal hyaline cartilage of the medial femorotibial compartment. Normal medial femoral condyle and tibial plateau. Normal medial collateral ligamentous complex (MCL). Normal distal semimembranosus, gracilis and semitendinosus tendons. Normal lateral meniscus. Normal hyaline cartilage of the lateral femorotibial compartment. Normal lateral femoral condyle and tibial plateau. Normal proximal tibiofibular articulation. Normal lateral collateral (fibular) ligament. Normal popliteus tendon. Normal biceps femoris tendon. Normal anterior cruciate ligament (ACL). Normal posterior cruciate ligament (PCL). Normal congruent patellofemoral articulation. There is diffuse, less than 50% thickness articular cartilage loss of the patellofemoral compartment. Normal medial and lateral patellar retinaculum. Normal quadriceps tendon. Normal patellar tendon. Normal Hoffa''s fat pad. A small joint effusion is present. Mild subcutaneous edema is present anterior aspect the knee joint. MRI/Lower Ext Joint Only (Routine) IMPRESSION: 1. A small free edge radial tear is present in the middle one third aspect of the posterior horn of the medial meniscus see image #10 series 5. Normal anterior horn and body of the medial meniscus. Electronically Signed: Nathen Tsai MD at 23:01 EST , Service support ,
== END ==
PROVIDERS: PCP Family Medicine; Referring Provider Orthopaedic Surgery; Visit Provider Orthopaedic Surgery
DX: S83.242A Other tear of medial meniscus, current injury, left knee, initial encounter (principal); S83.512A Sprain of anterior cruciate ligament of left knee, initial encounter
CPT/HCPCS: 73721

== ENCOUNTER → 2020-09-07 13:47 | Outpatient (CLI) | payer OTHER, SELFPAY ==
[2020-08-23 13:50] VITALS: BMI 40.7
--- NOTE | 2020-09-07 13:49 | CT_ITS ---
STUDY: CT ABDOMEN AND PELVIS WITH CONTRAST REASON FOR EXAM: Female, 49 years old. UPPER ABD PAIN, DIARRHEA, CHOLECYTECTOMY 2 MONTHS AGO, APPENDECTOMY, LIDIA/BSO, GASTRIC BYPASS RADIATION DOSAGE (If Supplied By Facility): CTDIvol = ( 17.06 ) mGy, DLP = ( 1124.11 ) mGycm TECHNIQUE: Transaxial images were obtained from the dome of the diaphragm to the symphysis pubis without oral contrast. Oral and amp;amp; IV Readi-CAT and amp;amp; 100mL Isovue-300 was administered. Sagittal and coronal images were reconstructed. Individualized dose optimization techniques were used for this CT. COMPARISON: 05/18/2020 FINDINGS: The visualized lung bases are unremarkable. The visualized portions of the heart are within normal limits. 1.6 cm hypoattenuated right hepatic nodule in the liver near the gallbladder fossa, possibly cystic in nature. Probable contracted gallbladder. No significant dilatation of the extrahepatic biliary system. Normal spleen. Normal pancreas. Normal bilateral adrenal glands. Normal right kidney. Normal left kidney. Prior surgery of the stomach. Small hiatal hernia. Normal small intestine. Normal colon. The appendix is nonvisualized. Normal abdominal aorta. Normal inferior vena cava. Normal retroperitoneum. Normal urinary bladder. Normal abdominal wall. Spondylolysis of L5. CT/Abdomen/Pelvis WITH Contrast IMPRESSION: Small hiatal hernia. Hypoattenuated right hepatic nodule near the gallbladder fossa. Electronically Signed: Red Trevino DO at 23:18 EST Tel [phone], Service support ,
== END ==
PROVIDERS: PCP Family Medicine; Referring Provider Surgery; Visit Provider Surgery
DX: R10.11 Right upper quadrant pain (principal); R19.7 Diarrhea, unspecified
CPT/HCPCS: 74177; Q9967

== ENCOUNTER 2020-09-27 07:16 | Day surgery (SDC) | payer OTHER, SELFPAY ==
[2020-08-23 13:50] VITALS: BMI 40.7
--- NOTE | 2020-09-27 07:03 | HP_ITS ---
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: No Is patient in pain?: Yes (upper abdominal pain) Allergies cephalexin [From Keflex] Allergy (Verified 05/30/20 13:28) Unknown aripiprazole [From Abilify] Adverse Reaction (Mild, Verified 08/23/20 13:53) Pain in joints Medications levothyroxine 150 mcg tablet 150 mcg PO DAILY 06/16/19 [History Confirmed 08/23/20] Escitalopram Oxalate [Lexapro] 20 mg PO DAILY 05/18/20 [History Confirmed 08/23/20] Ibuprofen 600 mg PO 4X/DAY PRN #1 tab 05/19/20 [Rx Confirmed 08/23/20] liothyronine 5 mcg tablet 5 mcg PO DAILY 08/23/20 [History Confirmed 08/23/20] [facility] Medical History Biliary colic (Acute) Gallbladder sludge (Acute) Right upper quadrant abdominal pain (Acute) Contact dermatitis and eczema due to plant (Inactive) Cholesterolosis (Acute) Hypoglycemia (Acute) Hypothyroidism (Acute) Vision problem (Acute) hx of gallbladder removal (Acute) Chronic cholecystitis (Chronic) Parth's disease (Chronic) Type 2 diabetes mellitus (Resolved) Surgical History History of (Acute) History of bariatric surgery (Acute) History of hysterectomy (Acute) History of laparoscopic cholecystectomy (Acute ~05/18/20) History of right knee surgery (Acute) History of tonsillectomy (Acute) Family History Mother Anxiety Depression Hypertension Thyroid disorder Father Arthritis Autoimmune disorder Cancer Grandfather Suicide Daughter Seizures Social History (Updated 08/23/20 @ 14:[address] Troy Ruiz MD) Smoking Status: Former smoker alcohol intake: never HPI HPI HPI: ABRIL PROCTOR, is a 49 F who presents to the office today for HPI HPI Surgical H&P: Yes HPI: ABRIL PROCTOR is a 49 F who presents to the office today for abdominal pain and diarrhea. The patient reports that she has these episodes where she has severe upper abdominal pain that feels like cramping and doubles her over and then shortly after she has explosive diarrhea. The diarrhea does make her feel better. She does have a history of gastric bypass and she has had diverticulitis in the past. She reports the pain is similar to the pain she was experiencing when she had her gallbladder removed. ROS General General: No weight change or fatigue Cardio Cardiovascular: No murmur, pacemaker, heart disease, atrial fibrillation, high blood pressure, heart attack, heart stent, palpitations, shortness of breat with exertion or chest pain Psych Psychiatric: No depression or anxiety Resp Respiratory: No shortness of breath, No sleep apnea, No cough, No COPD, No asthma, No emphysema, No wheezing Gastro Gastrointestinal: Yes abdominal pain, No nausea or vomiting, Yes diarrhea, No constipation, No blood in stool, No acid reflux, No hemorrhoids, No ulcers, No gallbladder problem, No black,tarry stools Eddi Hematologic: No blood thinners Exam Const General: cooperative Orientation: alert, oriented x3 Resp Effort & Inspection: normal respiratory effort Auscultation: clear to auscultation bilaterally Cardio Rate: regular rate Rhythm: regular rhythm Heart Sounds: no murmurs GI Inspection: non-distended Palpation: soft, nontender Assessment & Plan Problems 1. Upper abdominal pain R10.10 2. Diarrhea, unspecified type R19.7 Plan The patient notes that she has episodes of severe upper abdominal pain with cramping. Immediately following these episodes of pain she has a large diarrhea bowel movement. She has had history of diverticulitis in the past. She also has a history of gastric bypass. This pain has been going on since May of last year at least weekly and she reports that the pain is similar to when she had her gallbladder removed. The patient reports she has never had a colonoscopy in the past. At this time I would recommend CT with IV and p.o. contrast of the abdomen and pelvis. It is a possibility that she is having gastric distention or pseudocyst from her gallstone pancreatitis. There is also possibility the patient is partially obstructed due to stricture from her diverticulitis in the past. This may be building up and causing abdominal pain which releases with the diarrhea. I would like to perform a colonoscopy on the patient as well. I explained endoscopy in detail to the patient. I explained the risks including but not limited to stroke or heart attack with anesthesia, perforation of the GI tract, bleeding, infection. I explained that any of these could necessitate further emergency surgery. The patient understands and all questions were answered sufficiently. The patient wishes to proceed with procedure. We discussed the current risks associated with COVID-19. While it is understood that there is a community spread of COVID-19, the risk of leighton COVID-19 while at [facility] ([facility]) is very low; however, the risk cannot be completely mitigated because of the community spread of the disease. We discussed in detail the risk of exposure to and/or potential harm posed by the COVID-19 virus with having a surgery/procedure at this time versus the risk of delaying the surgery/procedure. It is not possible to know either the risk of delaying the surgery or procedure or chance of getting an infection with perfect accuracy, but a joint decision was made to proceed at this time with the scheduled surgery/procedure as indicated on the consent form. Patient was notified that we will need to comply with any screening or testing [facility] wishes to perform or that surgery may be delayed for any positive results. Troy Ruiz MD Pager: [facility] [address] [place] [address], [address] [place] [address] Office: Orders Orders: Colonoscopy Today R10.9, R19.7 Abdomen/Pelvis WITH Contrast Today R10.11, R19.7 Coding Level of Care Code Off vis,est,level 3 Diagnoses Upper abdominal pain R10.10 Diarrhea, unspecified type R19.7 ??Diarrhea type: unspecified type I have re-examined the patient. There are no clinical changes since date of exam.
[2020-09-27 07:51] VITALS: BP 117/65; PULSE 73; RESP 16; TEMP 36.6; O2SAT 98; BMI 41.1
[2020-09-27] MEDS: Lactated Ringers 1,000 ML 100 ML IV (08:40)
[2020-09-27 09:06] VITALS: BP 100/62; BP 117/65; PULSE 74; RESP 16; TEMP 36.3; O2SAT 98
[2020-09-27 09:10] VITALS: BP 103/64; BP 117/65; PULSE 75; RESP 16; O2SAT 100
--- NOTE | 2020-09-27 09:12 | OP.CCLET_ITS ---
09/27/2020 Larry Armas [address] [place] [address] Re : Upper GI endoscopy procedure for Beth Garcia Dear Dr. Armas This procedure was performed on Sunday, September 27, 2020. My impressions and recommendations are as follows: Impressions : - Normal esophagus. - Normal stomach. - Normal examined duodenum. - No specimens collected. Recommendations : - Discharge patient to home. - Resume previous diet. - Continue present medications. My findings are described in the full procedure note, which is enclosed. If I can be of further assistance, please feel free to contact me at Doctor phone number(s): , Work: . Sincerely, Troy Ruiz MD 09/27/2020 9:11:24 AM This report has been signed electronically.
--- NOTE | 2020-09-27 09:12 | OP.EGD_ITS ---
Patient Name: Beth Garcia Procedure Date: 09/27/2020 8:33 AM Date of : 1970 Age: 49 Procedure: Upper GI endoscopy Indications: Epigastric abdominal pain Providers: Troy Ruiz MD Referring MD: Larry Armas Medicines: Monitored Anesthesia Care Patient Profile: This is a 49 year old female. Refer to note in patient chart for documentation of history and physical. Complications: No immediate complications. Procedure: Pre-Anesthesia Assessment: - Prior to the procedure, a History and Physical was performed, and patient medications and allergies were reviewed. The patient's tolerance of previous anesthesia was also reviewed. The risks and benefits of the procedure and the sedation options and risks were discussed with the patient. All questions were answered, and informed consent was obtained. Prior Anticoagulants: The patient has taken no previous anticoagulant or antiplatelet agents. After reviewing the risks and benefits, the patient was deemed in satisfactory condition to undergo the procedure. After obtaining informed consent, the endoscope was passed under direct vision. Throughout the procedure, the patient's blood pressure, pulse, and oxygen saturations were monitored continuously. The Endoscope was introduced through the mouth, and advanced to the operative stoma of duodenum. The upper GI endoscopy was accomplished without difficulty. The patient tolerated the procedure well. Scope In: 8:42:30 AM Scope Out: 8:43:50 AM Total Procedure Duration Time 0 hours 1 minute 20 seconds Findings: The esophagus was normal. The stomach was normal. The examined duodenum was normal. Impression: - Normal esophagus. - Normal stomach. - Normal examined duodenum. - No specimens collected. Recommendation: - Discharge patient to home. - Resume previous diet. - Continue present medications. Procedure Code(s): --- Professional --- 52961, Esophagogastroduodenoscopy, flexible, transoral; diagnostic, including collection of specimen(s) by brushing or washing, when performed (separate procedure) Diagnosis Code(s): --- Professional --- R10.13, Epigastric pain CPT copyright 2017 [employer]. All rights reserved. The codes documented in this report are preliminary and upon mergers and acquisitions manager review may be revised to meet current compliance requirements. Troy Ruiz MD 09/27/2020 9:11:24 AM This report has been signed electronically. Number of Addenda: 0 Note Initiated On: 09/27/2020 8:33 AM
--- NOTE | 2020-09-27 09:13 | OP.CCLET_ITS ---
09/27/2020 Larry Armas [address] [place] [address] Re : Colonoscopy procedure for Beth Garcia Dear Dr. Armas This procedure was performed on Sunday, September 27, 2020. My impressions and recommendations are as follows: Impressions : - Diverticulosis in the sigmoid colon. - The examination was otherwise normal on direct and retroflexion views. - No specimens collected. Recommendations : - Discharge patient to home. - Resume previous diet. - Continue present medications. - Repeat colonoscopy in 10 years for screening purposes. My findings are described in the full procedure note, which is enclosed. If I can be of further assistance, please feel free to contact me at Doctor phone number(s): , Work: . Sincerely, Troy Ruiz MD 09/27/2020 9:12:43 AM This report has been signed electronically.
--- NOTE | 2020-09-27 09:13 | OP.COLON_ITS ---
Patient Name: Beth Garcia Procedure Date: 09/27/2020 8:44 AM Date of : 1970 Age: 49 Procedure: Colonoscopy Indications: Generalized abdominal pain Providers: Troy Ruiz MD Referring MD: Larry Armas Medicines: Monitored Anesthesia Care Patient Profile: This is a 49 year old female. Refer to note in patient chart for documentation of history and physical. Last Colonoscopy: none. The patient's first colonoscopy is today. Complications: No immediate complications. Procedure: Pre-Anesthesia Assessment: - Prior to the procedure, a History and Physical was performed, and patient medications and allergies were reviewed. The patient's tolerance of previous anesthesia was also reviewed. The risks and benefits of the procedure and the sedation options and risks were discussed with the patient. All questions were answered, and informed consent was obtained. Prior Anticoagulants: The patient has taken no previous anticoagulant or antiplatelet agents. After reviewing the risks and benefits, the patient was deemed in satisfactory condition to undergo the procedure. After I obtained informed consent, the scope was passed under direct vision. Throughout the procedure, the patient's blood pressure, pulse, and oxygen saturations were monitored continuously. The colonoscope was introduced through the anus and advanced to the cecum, identified by appendiceal orifice and ileocecal valve. The colonoscopy was performed without difficulty. The patient tolerated the procedure well. The quality of the bowel preparation was good. Scope In: 8:46:02 AM Scope Withdrawal Time 0 hours 6 minutes 5 seconds Scope Out: 9:03:03 AM Total Procedure Duration Time 0 hours 17 minutes 1 second Findings: A few small-mouthed diverticula were found in the sigmoid colon. The exam was otherwise without abnormality on direct and retroflexion views. Impression: - Diverticulosis in the sigmoid colon. - The examination was otherwise normal on direct and retroflexion views. - No specimens collected. Recommendation: - Discharge patient to home. - Resume previous diet. - Continue present medications. - Repeat colonoscopy in 10 years for screening purposes. Procedure Code(s): --- Professional --- 18534, Colonoscopy, flexible; diagnostic, including collection of specimen(s) by brushing or washing, when performed (separate procedure) Diagnosis Code(s): --- Professional --- R10.84, Generalized abdominal pain K57.30, Diverticulosis of large intestine without perforation or abscess without bleeding CPT copyright 2017 [employer]. All rights reserved. The codes documented in this report are preliminary and upon commercial credit head review may be revised to meet current compliance requirements. Troy Ruiz MD 09/27/2020 9:12:43 AM This report has been signed electronically. Number of Addenda: 0 Note Initiated On: 09/27/2020 8:44 AM
[2020-09-27 09:15] VITALS: BP 105/59; BP 117/65; PULSE 71; RESP 16; O2SAT 100
[2020-09-27 09:21] VITALS: BP 117/65; BP 99/60; PULSE 60; RESP 16; TEMP 36.2; O2SAT 99
[2020-09-27 09:45] VITALS: BP 117/65
== END 2020-09-27 09:55 | disposition home or self-care (01) ==
LOC: EN 07:17 → AC 07:18
PROVIDERS: PCP Family Medicine; Referring Provider Family Medicine; Visit Provider Surgery
PROC: 0DJD8ZZ Inspection of Lower Intestinal Tract, Via Natural or Artificial Opening Endoscopic (ICD-10-PCS; CPT 45378; principal; 2020-09-27 08:25)
DX: R10.13 Epigastric pain (principal); K57.30 Diverticulosis of large intestine without perforation or abscess without bleeding; Z20.828 Contact with and (suspected) exposure to other viral communicable diseases; E06.3 Autoimmune thyroiditis; R19.7 Diarrhea, unspecified; F41.9 Anxiety disorder, unspecified; F32.9 Major depressive disorder, single episode, unspecified; Z98.84 Bariatric surgery status; Z79.899 Other long term (current) drug therapy; Z87.891 Personal history of nicotine dependence
CPT/HCPCS: 43235; 45378; 87426; C9803; J7120; J2405

== ENCOUNTER → 2021-02-14 11:06 | Outpatient (CLI) | payer OTHER, SELFPAY ==
[2021-02-14 11:09] LABS: Lyme Ab Screen Interpretation REF LAB
[2021-02-14 11:38] LABS: Absolute Lymphocyte Count 1.85 X10^3/uL (0.83-4.51); Absolute Neutrophil Count 3.8 X10^3/uL (2.0-7.7); Basophil# 0.04 X10^3/uL; Basophil% 0.6 % (0-1); Eosinophil# 0.12 X10^3/uL; Eosinophils% 1.9 % (0-5); Hematocrit 37.3 % (37-47); Lymphocyte # 1.85 X10^3/ul (0.83-4.51); Lymphocyte % 29.2 % (19-41); Mean Corp Hgb Conc 32.2 g/dL (32-36); Mean Corpuscular Hgb 28.8 pg (27.0-32.0); Mean Corpuscular Volume 89.4 fL (81-99); Mean Platelet Vol. 10.5 fl (6.2-12.0); Monocyte# 0.45 X10^3/uL; Monocyte% 7.1 % (0-10); NRBC Flagged by Analyzer 0 % (0-5); Neutrophil # 3.84 X10^3/uL (2.7-7.7); Neutrophil % 60.7 % (47-70); Platelet Count 236 K/mm3 (150-450); RBC Distribution Width CV 12.5 % (11.6-14.6); RBC Distribution Width SD 40.9 fl (35.1-43.9); Red Blood Count 4.17 M/mm3 (4.2-5.4); White Blood Count 6.3 K/mm3 (4.4-11.0)
[2021-02-14 11:41] LABS: Erythrocyte Sedimentation Rate 9 mm/hr (0-30)
[2021-02-14 12:14] LABS: ALB/GLOB Ratio 0.9 RATIO (0.9-2.4); AST(SGOT) 15 U/L (15-37); Alanine Aminotransfer ALT/SGPT 19 U/L (13-56); Albumin, Serum 3.3 g/dL (3.2-5.0); Alkaline Phosphatase 120 U/L (45-117); Anion Gap 3 (5-15); BUN 10 mg/dL (7-18); BUN/Creat Ratio 15.1 RATIO (10-20); CRP 3.34 mg/L (0.0-3.0); Calcium,Total 8.7 mg/dL (8.5-10.1); Chloride 106 mmol/L (98-107); Creatinine, Serum 0.66 mg/dL (0.55-1.02); EST Glomerular Filtration Rate 100 mL/min (>60); Est Glom Filt Rate - Afr Amer 122 mL/min (>60); Free T3 2.5 pg/mL (2.18-3.98); Globulin 3.5 g/dL (2.2-4.2); Glucose 89 mg/dL (74-106); Potassium 4.2 mmol/L (3.5-5.1); Protein, Total 6.8 g/dL (6.4-8.2); Rheumatoid Factor < 10.0 IU/mL (<15); Sodium Level 140 mmol/L (136-145); T4 Free Direct 1.09 ng/dL (0.76-1.46); Thyroid Stim Hormone (TSH) 0.08 uIU/mL (0.358-3.74)
[2021-02-15 15:34] LABS: ANTINUCLEAR ANTIBODIES DIRECT Negative (Negative)
[2021-02-16 14:20] LABS: CCP IgG Antibodies 5 units (0-19); Lyme Scn Total Ab w/Rflx <0.91 ISR (0.00-0.90)
== END ==
PROVIDERS: PCP Family Medicine; Referring Provider Nurse Practitioner Family; Visit Provider Nurse Practitioner Family
DX: M25.50 Pain in unspecified joint (principal); E03.9 Hypothyroidism, unspecified
CPT/HCPCS: 80053; 84439; 84443; 84481; 85025; 85652; 86038; 86140; 86200; 86431; 86618

== ENCOUNTER → 2021-04-13 09:31 | Outpatient (CLI) | payer OTHER, SELFPAY ==
[2021-04-13 10:21] LABS: Thyroid Stim Hormone (TSH) 0.59 uIU/mL (0.358-3.74)
== END ==
PROVIDERS: PCP Family Medicine; Referring Provider Nurse Practitioner Family; Visit Provider Nurse Practitioner Family
DX: E03.9 Hypothyroidism, unspecified (principal)
CPT/HCPCS: 36415; 84443

== ENCOUNTER → 2021-05-24 16:12 | Outpatient (CLI) | payer OTHER, SELFPAY ==
[2021-05-24 17:06] LABS: Erythrocyte Sedimentation Rate 8 mm/hr (0-30)
[2021-05-24 17:47] LABS: Free T3 1.6 pg/mL (2.18-3.98)
[2021-05-24 17:56] LABS: CRP < 2.90 mg/L (0.0-3.0)
[2021-05-25 13:28] LABS: CPK Total, Creatine Kinase 67 U/L (26-192); LDH 219 U/L (84-246)
== END ==
PROVIDERS: PCP Family Medicine; Referring Provider Internal Medicine Gastroenterology; Visit Provider Family Medicine
DX: R10.11 Right upper quadrant pain (principal); R19.7 Diarrhea, unspecified; E03.9 Hypothyroidism, unspecified
CPT/HCPCS: 36415; 81050; 82550; 83497; 83615; 84110; 84439; 84481; 84585; 85652; 86140

== ENCOUNTER → 2021-05-29 10:30 | Outpatient (CLI) | payer OTHER, SELFPAY ==
[2021-06-01 17:07] LABS: Dopamine, UR 401 ug/L (Undefined); Epinephrine, 24Ur 6 ug/24 hr (0-20); Epinephrine, Ur 9 ug/L (Undefined); Norepinephrine, 24Ur 50 ug/24 hr (0-135); Norepinephrine, Ur 72 ug/L (Undefined)
[2021-06-01 17:47] LABS: Dopamine, 24Ur 281 ug/24 hr (0-510)
== END ==
PROVIDERS: PCP Family Medicine; Referring Provider Internal Medicine Gastroenterology; Visit Provider Internal Medicine Gastroenterology
DX: R19.7 Diarrhea, unspecified (principal)
CPT/HCPCS: 81050; 82384

== ENCOUNTER → 2021-06-01 10:50 | Outpatient (CLI) | payer OTHER, SELFPAY ==
[2021-06-01 12:01] LABS: CPK Total, Creatine Kinase 62 U/L (26-192)
== END ==
PROVIDERS: PCP Family Medicine; Referring Provider Internal Medicine Gastroenterology; Visit Provider Internal Medicine Gastroenterology
DX: R19.7 Diarrhea, unspecified (principal); K80.50 Calculus of bile duct without cholangitis or cholecystitis without obstruction
CPT/HCPCS: 36415; 82550

== ENCOUNTER → 2021-06-15 14:40 | Outpatient (CLI) | payer OTHER, SELFPAY ==
--- NOTE | 2021-06-15 14:46 | BI_ITS ---
MAMMOGRAPHY - BILATERAL SCREENING REASON FOR EXAM: Female, 50 years old. Routine annual screening examination. PERTINENT HISTORY: Non-contributory. TECHNIQUE: Digital bilateral breast kenneth (3D mammographic acquisition) in the CC and MLO projections. 2-D mediolateral oblique (MLO) and craniocaudad (CC) views of both breasts were obtained. CAD: Full Field Digital Mammography with Computer Added Detection was performed. COMPARISON: Comparison is made with prior study 06/14/2020 and 05/06/2019. FINDINGS: Breast Composition: The breasts are heterogeneously dense, which may obscure small masses. There are no dominant masses or suspicious calcifications. Stable benign-appearing bilateral No other significant abnormalities are identified. There has been no significant change since the prior study. BI/SCRN MAMM (CAD)W/KENNETH BILAT IMPRESSION: Stable bilateral screening mammogram. Yearly follow-up mammogram recommended. (A) ASSESSMENT CATEGORY: BIRADS Category 2: Benign. A letter regarding these results will be sent to the patient by the facility within 30 days. Approximately 10% of breast cancers are not detected by mammography. A normal mammogram should not delay biopsy of a clinically suspicious abnormality. [id number] Electronically Signed: Ki Ayala MD at 8:27 EDT , Service support ,
== END ==
PROVIDERS: PCP Family Medicine; Referring Provider Family Medicine; Visit Provider Family Medicine
DX: Z12.31 Encounter for screening mammogram for malignant neoplasm of breast (principal)
CPT/HCPCS: 77063; 77067

== ENCOUNTER → 2021-06-23 10:37 | Outpatient (CLI) | payer OTHER, SELFPAY ==
--- NOTE | 2021-06-23 10:44 | MRI_ITS ---
STUDY: MR MRCP WITHOUT CONTRAST REASON FOR EXAM: Female, 50 years old. elevated alkaline phosphatase and antimitochondria TECHNIQUE: Standard MRCP technique was utilized. COMPARISON: 07 September 2020 FINDINGS: Gallbladder is removed. Biliary tree is decompressed and normal caliber without filling defects, strictures or stones. Pancreatic duct is normal. Region of ampulla is normal. Solid organs are normal on noncontrast MR. There is no intestinal obstruction. There is no upper abdominal lymphadenopathy. MRI/MRCP Abdomen without Contrast IMPRESSION: 1. Normal pancreaticobiliary ductal system. 2. Normal abdominal solid organs. Electronically Signed: Kelsie Thompson MD at 20:20 EDT Tel , Service support ,
[2021-06-25 22:06] LABS: Gastrin, Serum 13 pg/mL (0-115)
== END ==
PROVIDERS: PCP Family Medicine; Referring Provider Internal Medicine Gastroenterology; Visit Provider Internal Medicine Gastroenterology
DX: K80.50 Calculus of bile duct without cholangitis or cholecystitis without obstruction (principal)
CPT/HCPCS: 36415; 74181; 82941

== ENCOUNTER → 2021-08-02 17:51 | Outpatient (CLI) | payer OTHER, SELFPAY | PROVIDERS: PCP Family Medicine; Referring Provider Family Medicine; Visit Provider Family Medicine | DX: J06.9 Acute upper respiratory infection, unspecified (principal) | CPT/HCPCS: 87633; 87635; U0005; U0003 ==

== ENCOUNTER 2021-10-11 10:59 | Outpatient (CLI) | payer OTHER, SELFPAY ==
[2021-10-11 13:06] LABS: Free T3 2.1 pg/mL (2.18-3.98); T4 Free Direct 0.83 ng/dL (0.76-1.46); Thyroid Stim Hormone (TSH) 1.92 uIU/mL (0.358-3.74)
== END 2021-10-11 23:59 | disposition home or self-care (01) ==
LOC: LAB 11:02
PROVIDERS: PCP Family Medicine; Visit Provider Family Medicine
DX: E03.9 Hypothyroidism, unspecified (principal)
CPT/HCPCS: 36415; 84439; 84443; 84481

== ENCOUNTER 2021-10-24 16:52 | Outpatient (CLI) | payer OTHER, SELFPAY ==
--- NOTE | 2021-10-24 16:54 | CT_ITS ---
INDICATION: abd pain, diarrhea -- oral and IV contrast please EXAMINATION: CT Abdomen And Pelvis W/ Contrast Injection TECHNIQUE: Helically acquired images were obtained of the abdomen and pelvis after IV contrast. A radiation dose optimization technique was used for this scan. IV Contrast dosage and agent: Oral and amp; IV Gastrografin and amp; 100mL [id number]-300 Oral contrast: Yes. COMPARISON: 09/07/2020. FINDINGS: Visualized lung bases: Unremarkable Liver: Diffusely hypodense consistent with fatty liver. Gallbladder: Surgically absent. Spleen: Unremarkable Pancreas: Unremarkable Adrenal Glands: Unremarkable Kidneys: Unremarkable Vasculature: Unremarkable GI Tract: Scattered diverticula throughout the colon without evidence of inflammation. Post surgical changes status post gastric bypass. Lymphadenopathy: None Peritoneum: No ascites. Bladder: Unremarkable Reproductive organs: Status post hysterectomy. Bones/Soft tissues: No suspicious osseous or soft tissue lesions CT/Abdomen/Pelvis WITH Contrast IMPRESSION: No acute abnormalities in the abdomen or pelvis. Diverticulosis. Fatty liver. Electronically Signed: Osmani Shah MD at 19:32 EST ,
== END 2021-10-24 23:59 | disposition home or self-care (01) ==
LOC: CT 16:53
PROVIDERS: PCP Family Medicine; Referring Provider Nurse Practitioner Adult Health; Visit Provider Nurse Practitioner Adult Health
DX: R10.11 Right upper quadrant pain (principal); R19.7 Diarrhea, unspecified
CPT/HCPCS: 74177; Q9967

== ENCOUNTER → 2022-03-20 | Outpatient (CLI) | payer OTHER, SELFPAY ==
--- NOTE | 2022-03-20 16:45 | RAD_ITS ---
EXAM: XR RIGHT KNEE COMPLETE, 4 OR MORE VIEWS CLINICAL INDICATION: KNEE PAIN TECHNIQUE: Four or more views of the right knee. This report was created using [employer] report generation technology. COMPARISON: None. FINDINGS: BONES/JOINTS: Mild marginal osteophytes lateral compartment. No acute fracture. No subluxation. Normal alignment. Preservation of the joint space. No sclerotic or destructive changes observed. SOFT TISSUES: Unremarkable. No soft tissue swelling or gas. No radiopaque foreign body. RAD/Knee 4 or More Views IMPRESSION: Mild degenerative changes lateral compartment. Electronically Signed: Kevin Jesus MD at 7:51 EDT ,
== END | disposition home or self-care (01) ==
PROVIDERS: PCP Family Medicine; Referring Provider Family Medicine; Visit Provider Family Medicine
DX: M25.561 Pain in right knee (principal)
CPT/HCPCS: 73564

== ENCOUNTER → 2022-04-30 | Outpatient (CLI) | payer OTHER, SELFPAY ==
--- NOTE | 2022-04-30 12:38 | MRI_ITS ---
STUDY: MRI RIGHT KNEE REASON FOR EXAM: Right knee pain for 8 weeks, right knee injury. TECHNIQUE: Standardized fat and water weighted pulse sequences were obtained in all 3 orthogonal planes. COMPARISON: Radiograph report 03/20/2022. FINDINGS: There is a small tear at the root of the posterior horn of the medial meniscus (proton-density sagittal images 29, 30; proton-density coronal images 12, 13; T2 coronal images 12, 13). Normal hyaline cartilage of the medial femorotibial compartment. There are small marginal osteophytes of the medial femorotibial compartment. Normal medial femoral condyle and tibial plateau. Normal medial collateral ligamentous complex (MCL). Normal distal semimembranosus, gracilis and semitendinosus tendons. Normal lateral meniscus. Normal hyaline cartilage of the lateral femorotibial compartment. Normal lateral femoral condyle and tibial plateau. Normal proximal tibiofibular articulation. Normal lateral collateral (fibular) ligament. Normal popliteus tendon. Normal biceps femoris tendon. Normal anterior cruciate ligament (ACL). Normal posterior cruciate ligament (PCL). Normal congruent patellofemoral articulation. There is arthrosis of the patellofemoral compartment with chondral thinning (T2 sagittal image 16). Normal medial and lateral patellar retinaculum. Normal visualized quadriceps tendon. Normal patellar tendon. Normal Hoffa''s fat pad. There is a minimal volume of fluid in the knee joint. There is edema in the anterior subcutis adipose space. The otherwise visualized osseous structures are unremarkable. MRI/Lower Ext Joint Only (Routine) IMPRESSION: Small tear at the root of the posterior horn of the medial meniscus. Patellofemoral arthrosis. Electronically Signed: Edil Gan MD at 13:43 EDT ,
== END | disposition home or self-care (01) ==
LOC: MRI 12:38
PROVIDERS: PCP Family Medicine; Visit Provider Orthopaedic Surgery
DX: M25.561 Pain in right knee (principal)
CPT/HCPCS: 73721

== ENCOUNTER 2022-05-21 15:07 | Outpatient (RCR) | payer OTHER, SELFPAY ==
--- NOTE | 2022-05-21 16:01 | HP.PTEVAL ---
Patient's Visit Information ABRIL PROCTOR is a 51 year old F referred to Physical Therapy by Dr. Kevin Shay DO with a diagnosis of TEAR OF MEDIAL MENISCUS ,INJURY RIGHT KNEE. Date of Evaluation: 05/21/22 Physical Therapist: Robbi Temple, PT, Cert MDT, OCS - Visit Plan Frequency: 2-3x /Week Duration: 4-6 Weeks Plan: PT INTERVENTIONS FLEXABLITY ,STRENGTHENING QUADS/HAMS/HIP ,FUNCTIONAL STRENGTHENING AND MODLATIES - Subjective This 51 y/o female presents to physical therapy with right knee pain. Patient twisted knee getting onto a high bed ~ 4 months ago. Patient felt pop in knee . Patient had immediate pain which progressively worse posterior medial knee described as ache. Patient family recommended DR Hines had MRI shown small posterior horn knee. Patient then seen Dr. Shay recommended PT before surgery. MEDS ibufroprin. Aggravating factors stairs ,squatting ,kneeling , standing stiffness and extended walking. Described as ache. Sleeping better. Denies paresthesia/tingling. Patient goals to avoid surgery and get stronger. SOCIAL: . VOCATION: : H - Pain Right Knee Pain Intensity (Out of 10): 1 Pain Intensity Range: 10 - Objective POSTURE: mild forward posture ,mild knee valgus ,recurvatum. GAIT: reciprocal pattern. PALPATION: medial joint line. NEURO: denies paresthesia/tingling. EDEMA: absent. MMT: quads/hams 4/5 ,hip abduction 4-/5. AROM: supine knee flexion 0-135 degrees ER pain. STAIRS: one steps at time pain. FLEXABLITY: hamstrings WFL, quads min tight - Special Tests R Knee Kirill - Meniscus: Positive R Knee Anterior Drawer - ACL: Negative R Knee Pivot Shift - ACL, Ant. Rotator Instability: Negative R Knee Valgus - MCL: Negative R Knee Varus - LCL: Negative R Knee Patellar Apprehension - PFS: Negative - Balance/Special Test Scores Lower Extremity Functional Score: 35 - Goals Goal 1:: I with HEP for knee Goal Time Frame: 4-6 Weeks Goal 2:: Patient to demonstrate 60% improvement with decrease pain and improve funtion Goal Time Frame: 4-6 Weeks Goal 3:: Patient to improve ability to ascend/descend stairs and walking and job with min limitations Goal Time Frame: 4-6 Weeks Goal 4:: Patient to improve LFES Score by 5 points to improve function and QOL Goal Time Frame: 4-6 Weeks Goal 5:: Patient to improve hip abductor strength to good to improve function. Goal Time Frame: 4-6 Weeks - Rehabilitation Potential Physical Therapy Diagnosis: This patient has posterior horn mild tear with pain ,weakness and which impairs gait ,stairs and function thus benefit from skilled pt Rehabilitation Potential: Good - Anticipated Interventions Patient/Client Instruction: Educate patient on: Condition, Plan of Care For the Purpose of:: To decrease pain, To increase ROM, To improve muscle performance and motor function, To improve ability to perform ADL's, To increase tolerance to activity/condition/position, To improve ability of physical actions for home/community/work/leisure, To improve health of tissue, To decrease soft tissue restriction, To increase flexibility/ROM, To reduce risk of recurrence, To prevent re-injury Therapeutic Exercise to Include: Strength training, Endurance training, Balance training, Flexibilty training, Active ROM Comment: QUADS/HMS/HIP For the Purpose of:: To decrease pain, To increase ROM, To improve muscle performance and motor function, To improve ability to perform ADL's, To increase tolerance to activity/condition/position, To improve ability of physical actions for home/community/work/leisure, To improve health of tissue, To decrease soft tissue restriction, To increase flexibility/ROM, To improve endurance, To prevent re-injury TENS: Yes IF ES: Yes Cryotherapy (ice pack, ice massage): Yes Thermo therapy (hot pack): Yes Ultrasound (thermal/non thermal): Yes For the Purpose of:: To decrease pain, To decrease swelling/inflammation, To increase ROM, To improve health of tissue, To decrease soft tissue restriction Thank you for the opportunity to evaluate your patient. For Medicare and Medicare HMO plans, please review the plan of care and approve it. It will need to be FAXED BACK to us at [phone] for Medicare purposes. For Medicare only, by signing this I certify the plan of care. Please let me know if there are questions or concerns regarding this plan of care. Physician Signature: Date:
--- NOTE | 2022-08-21 12:16 | HP.PT.NRP ---
ABRIL PROCTOR was seen in my office for initial evaluation on 05/21/22. The following Plan of Care was established for this patient: Initial Frequency: 2-3x /Week Initial Duration: 4-6 Weeks Patient/Client Instruction: Educate patient on: Condition, Plan of Care For the Purpose of:: To decrease pain, To increase ROM, To improve muscle performance and motor function, To improve ability to perform ADL's, To increase tolerance to activity/condition/position, To improve ability of physical actions for home/community/work/leisure, To improve health of tissue, To decrease soft tissue restriction, To increase flexibility/ROM, To reduce risk of recurrence, To prevent re-injury Therapeutic Exercise to Include: Strength training, Endurance training, Balance training, Flexibilty training, Active ROM For the Purpose of:: To decrease pain, To increase ROM, To improve muscle performance and motor function, To improve ability to perform ADL's, To increase tolerance to activity/condition/position, To improve ability of physical actions for home/community/work/leisure, To improve health of tissue, To decrease soft tissue restriction, To increase flexibility/ROM, To improve endurance, To prevent re-injury TENS: Yes IF ES: Yes Cryotherapy (ice pack, ice massage): Yes Thermo therapy (hot pack): Yes Ultrasound (thermal/non thermal): Yes For the Purpose of:: To decrease pain, To decrease swelling/inflammation, To increase ROM, To improve health of tissue, To decrease soft tissue restriction This patient was last seen in our office . Pertinent comments regarding their Physical therapy will appear below: Patient was seen for PT evaluation for meniscus tear in knee thus d/c At this point I will be discontinuing this patient from physical therapy. I would be happy to see this patient again in the future if found appropriate by the physician. Thank you! Robbi Temple, PT, Cert MDT, OCS Balance/Gait/Functional tests - Balance/Special Test Scores Lower Extremity Functional Score: 35
== END 2022-05-21 19:00 | disposition home or self-care (01) ==
LOC: PT 15:07
PROVIDERS: PCP Family Medicine; Referring Provider Orthopaedic Surgery; Visit Provider Orthopaedic Surgery
DX: S83.241D Other tear of medial meniscus, current injury, right knee, subsequent encounter (principal); X58.XXXD Exposure to other specified factors, subsequent encounter
CPT/HCPCS: 97110; 97161

== ENCOUNTER → 2022-07-13 | Outpatient (CLI) | payer OTHER, SELFPAY ==
--- NOTE | 2022-07-13 15:08 | BI_ITS ---
MAMMOGRAPHY - BILATERAL SCREENING REASON FOR EXAM: Female, 51 years old. Routine annual screening examination. PERTINENT HISTORY: Non-contributory. TECHNIQUE: Digital bilateral breast kenneth (3D mammographic acquisition) in the CC and MLO projections. 2-D mediolateral oblique (MLO) and craniocaudad (CC) views of both breasts were obtained. CAD: Full Field Digital Mammography with Computer Added Detection was performed. COMPARISON: Comparison is made with prior study dated 06/15/2021 and 06/14/2020. FINDINGS: Breast Composition: The breasts are heterogeneously dense, which may obscure small masses. There are no dominant masses or suspicious calcifications. Stable small benign-appearing bilateral axillary lymph nodes. No other significant abnormalities are identified. There has been no significant change since the prior study. BI/SCRN MAMM (CAD)W/KENNETH BILAT IMPRESSION: Stable bilateral screening mammogram. Yearly follow-up mammogram recommended. (A) ASSESSMENT CATEGORY: BIRADS Category 2: Benign. A letter regarding these results will be sent to the patient by the facility within 30 days. Approximately 10% of breast cancers are not detected by mammography. A normal mammogram should not delay biopsy of a clinically suspicious abnormality. [id number] Electronically Signed: Ki Ayala MD at 9:29 EST ,
== END | disposition home or self-care (01) ==
LOC: OPBI 15:07
PROVIDERS: PCP Family Medicine; Referring Provider Nurse Practitioner Family; Visit Provider Nurse Practitioner Family
DX: Z12.31 Encounter for screening mammogram for malignant neoplasm of breast (principal)
CPT/HCPCS: 77063; 77067

== ENCOUNTER → 2023-07-17 | Outpatient (CLI) | payer OTHER, SELFPAY ==
--- NOTE | 2023-07-17 14:38 | BI_ITS ---
MAMMOGRAPHY - BILATERAL SCREENING REASON FOR EXAM: Female, 52 years old. Routine annual screening examination. PERTINENT HISTORY: Non-contributory. TECHNIQUE: Digital bilateral breast kenneth (3D mammographic acquisition) in the CC and MLO projections. 2-D mediolateral oblique (MLO) and craniocaudad (CC) views of both breasts were obtained. CAD: Full Field Digital Mammography with Computer Added Detection was performed. COMPARISON: Comparison is made with prior study dated July 13, 2022 and June 15, 2021. FINDINGS: Breast Composition: The breasts are heterogeneously dense, which may obscure small masses. There are no dominant masses or suspicious calcifications. Stable bilateral fat-containing axillary lymph nodes. No other significant abnormalities are identified. There has been no significant change since the prior study. BI/SCRN MAMM (CAD)W/KENNETH BILAT IMPRESSION: Stable bilateral screening mammogram. Yearly follow-up mammogram recommended. (A) ASSESSMENT CATEGORY: BIRADS Category 2: Benign. A letter regarding these results will be sent to the patient by the facility within 30 days. Approximately 10% of breast cancers are not detected by mammography. A normal mammogram should not delay biopsy of a clinically suspicious abnormality. [id number] Electronically Signed: Ki Ayala MD at 15:42 EST ,
== END | disposition home or self-care (01) ==
PROVIDERS: PCP Family Medicine; Referring Provider Family Medicine; Visit Provider Family Medicine
DX: Z12.31 Encounter for screening mammogram for malignant neoplasm of breast (principal)
CPT/HCPCS: 77063; 77067

== ENCOUNTER → 2024-02-26 | Outpatient (CLI) | payer OTHER, SELFPAY ==
[2024-02-26 10:41] LABS: Absolute Lymphocyte Count 1.72 X10^3/uL (0.83-4.51); Absolute Neutrophil Count 3.7 X10^3/uL (2.0-7.7); Basophil# 0.06 X10^3/uL; Eosinophil# 0.13 X10^3/uL; Eosinophils% 2.1 % (0-5); Hemoglobin 10.7 g/dL (12.0-15.0); Lymphocyte # 1.72 X10^3/ul (0.83-4.51); Lymphocyte % 27.7 % (19-41); Mean Corp Hgb Conc 30.6 g/dL (32-36); Mean Corpuscular Hgb 24.9 pg (27.0-32.0); Mean Corpuscular Volume 81.6 fL (81-99); Mean Platelet Vol. 9.9 fl (6.2-12.0); Monocyte# 0.54 X10^3/uL; Monocyte% 8.7 % (0-10); NRBC Flagged by Analyzer 0 % (0-5); Neutrophil # 3.73 X10^3/uL (2.7-7.7); Platelet Count 279 K/mm3 (150-450); RBC Distribution Width CV 15.2 % (11.6-14.6); Red Blood Count 4.29 M/mm3 (4.2-5.4); White Blood Count 6.2 K/mm3 (4.4-11.0)
[2024-02-26 11:01] LABS: Vitamin B12 333 pg/mL (211-911); Vitamin D,25 Hydroxy 30.6 ng/mL
[2024-02-26 11:12] LABS: Hemoglobin A1c 5.9 % (3.8-5.6)
[2024-02-26 11:44] LABS: ALB/GLOB Ratio 0.8 RATIO (0.9-2.4); AST(SGOT) 18 U/L (15-37); Alanine Aminotransfer ALT/SGPT 24 U/L (13-56); Albumin, Serum 3.4 g/dL (3.2-5.0); Alkaline Phosphatase 138 U/L (45-117); Anion Gap 4 (5-15); BUN 11 mg/dL (7-18); Calcium,Total 9.1 mg/dL (8.5-10.1); Chloride 107 mmol/L (98-107); Cholesterol 154 mg/dL (200); Creatinine, Serum 0.78 mg/dL (0.55-1.02); EST Glomerular Filtration Rate 81 mL/min (>60); Est Glom Filt Rate - Afr Amer 99 mL/min (>60); Ferritin 5 ng/mL (8-252); Globulin 4.1 g/dL (2.2-4.2); Glucose 95 mg/dL (74-106); High Density Lipoprotein 68 mg/dL; Iron 41 ug/dL (50-170); Iron Binding Capacity,Total 526 ug/dL (250-450); Potassium 4.3 mmol/L (3.5-5.1); Protein, Total 7.5 g/dL (6.4-8.2); Sodium Level 137 mmol/L (136-145); Thyroid Stim Hormone (TSH) 2.42 uIU/mL (0.358-3.74); Triglycerides 94 mg/dL; Very Low Density Lipoprotein 19 mg/dL (5-40)
[2024-02-28 12:09] LABS: Vitamin D 1,25-Dihydroxy 72.4 pg/mL (24.8-81.5)
[2024-03-02 11:07] LABS: Vitamin B1, Thiamine 103.9 nmol/L (66.5-200.0)
== END | disposition home or self-care (01) ==
LOC: LAB 10:06
PROVIDERS: PCP Family Medicine; Referring Provider Obstetrics & Gynecology; Visit Provider Obstetrics & Gynecology
DX: E66.8 Other obesity (principal); F50.81 Binge eating disorder; Z98.84 Bariatric surgery status
CPT/HCPCS: 36415; 80053; 80061; 82306; 82607; 82652; 82728; 82746; 83036; 83540; 83550; 84425; 84443; 85025

== ENCOUNTER → 2024-03-11 | Outpatient (CLI) | payer OTHER, SELFPAY ==
--- NOTE | 2024-03-11 11:21 | EKG12_ITS ---
Test Reason : OBESITY Blood Pressure : / mmHG Vent. Rate : 079 BPM Atrial Rate : 079 BPM P-R Int : 182 ms QRS Dur : 084 ms QT Int : 354 ms P-R-T Axes : 066 031 029 degrees QTc Int : 405 ms Normal sinus rhythm Normal ECG Confirmed by Kevin Ndiaye ([id number]), slot editor SALOME HAND ([id number]) on 03/12/2024 7:47:37 AM Referred By: Belkis Rodriguez Confirmed By:Kevin Ndiaye
[2024-03-11 17:46] LABS: Absolute Lymphocyte Count 2.16 X10^3/uL (0.83-4.51); Absolute Neutrophil Count 5.2 X10^3/uL (2.0-7.7); Basophil# 0.06 X10^3/uL; Basophil% 0.7 % (0-1); Eosinophil# 0.11 X10^3/uL; Eosinophils% 1.4 % (0-5); Hematocrit 32.2 % (37-47); Hemoglobin 10.1 g/dL (12.0-15.0); Lymphocyte # 2.16 X10^3/ul (0.83-4.51); Lymphocyte % 26.6 % (19-41); Mean Corp Hgb Conc 31.4 g/dL (32-36); Mean Corpuscular Hgb 24.6 pg (27.0-32.0); Mean Corpuscular Volume 78.5 fL (81-99); Mean Platelet Vol. 10.2 fl (6.2-12.0); Monocyte# 0.55 X10^3/uL; Monocyte% 6.8 % (0-10); NRBC Flagged by Analyzer 0 % (0-5); Neutrophil # 5.22 X10^3/uL (2.7-7.7); Neutrophil % 64.1 % (47-70); Platelet Count 247 K/mm3 (150-450); RBC Distribution Width CV 15.2 % (11.6-14.6); RBC Distribution Width SD 42.9 fl (35.1-43.9); White Blood Count 8.1 K/mm3 (4.4-11.0)
[2024-03-11 18:03] LABS: Erythrocyte Sedimentation Rate 17 mm/hr (0-30)
[2024-03-11 18:09] LABS: ALB/GLOB Ratio 0.9 RATIO (0.9-2.4); AST(SGOT) 16 U/L (15-37); Alanine Aminotransfer ALT/SGPT 17 U/L (13-56); Albumin, Serum 3.3 g/dL (3.2-5.0); Alkaline Phosphatase 131 U/L (45-117); Anion Gap 5 (5-15); BUN 10 mg/dL (7-18); BUN/Creat Ratio 13.4 RATIO (10-20); Calcium,Total 8.9 mg/dL (8.5-10.1); Chloride 108 mmol/L (98-107); Creatinine, Serum 0.74 mg/dL (0.55-1.02); EST Glomerular Filtration Rate 87 mL/min (>60); Est Glom Filt Rate - Afr Amer 105 mL/min (>60); Globulin 3.8 g/dL (2.2-4.2); Glucose 117 mg/dL (74-106); Potassium 3.5 mmol/L (3.5-5.1); Protein, Total 7.1 g/dL (6.4-8.2); Sodium Level 139 mmol/L (136-145)
== END | disposition home or self-care (01) ==
PROVIDERS: PCP Family Medicine; Referring Provider Obstetrics & Gynecology; Visit Provider Obstetrics & Gynecology
DX: K57.32 Diverticulitis of large intestine without perforation or abscess without bleeding (principal); E66.8 Other obesity
CPT/HCPCS: 36415; 80053; 85025; 85652; 86140; 93005

== ENCOUNTER → 2024-07-17 | Outpatient (CLI) | payer OTHER, SELFPAY ==
--- NOTE | 2024-07-17 13:11 | CT_ITS ---
HISTORY: screening. TECHNIQUE: Helically acquired images were obtained of the chest without contrast. A radiation dose optimization technique was used for this scan. 933 images. COMPARISON: 09/20/2016. FINDINGS: LARGE AIRWAYS: Patent. LUNGS: New 5 mm noncalcified left upper lobe nodule adjacent to the heart border on image 22 of series 2. PLEURA: No pneumothorax or significant pleural effusion. HEART/PERICARDIUM: Heart within normal limits in size. No significant coronary artery calcification. No pericardial effusion. VESSELS: Thoracic aorta nondilated. MEDIASTINUM/RICARDO: No pathologically enlarged adenopathy. UPPER ABDOMEN: Gastric postoperative change. BONES: Intact. CT/Low Dose CT Lung Screening IMPRESSION: New 5 mm left upper lobe pulmonary nodule. Lung-RADS category 3: Recommend [address] follow-up. Electronically Signed: Colleen Poe MD at 14:20 EST ,
== END | disposition home or self-care (01) ==
LOC: CT 13:11
PROVIDERS: PCP Family Medicine; Referring Provider Nurse Practitioner Family; Visit Provider Nurse Practitioner Family
DX: Z12.2 Encounter for screening for malignant neoplasm of respiratory organs (principal); Z12.39 Encounter for other screening for malignant neoplasm of breast
CPT/HCPCS: 71271

== ENCOUNTER → 2024-07-20 | Outpatient (CLI) | payer OTHER, SELFPAY ==
--- NOTE | 2024-07-20 08:17 | BI_ITS ---
MAMMOGRAPHY - BILATERAL SCREENING REASON FOR EXAM: Female, 53 years old. Routine annual screening examination. PERTINENT HISTORY: Non-contributory. TECHNIQUE: Digital bilateral breast jhon (3D mammographic acquisition) in the CC and MLO projections. 2-D mediolateral oblique (MLO) and craniocaudad (CC) views of both breasts were obtained. CAD: Full Field Digital Mammography with Computer Added Detection was performed. COMPARISON: Comparison is made with prior study dated July 17, 2023 and July 13, 2022. FINDINGS: Breast Composition: The breasts are heterogeneously dense, which may obscure small masses. There are no dominant masses or suspicious calcifications. Stable benign-appearing bilateral axillary lymph nodes. No other significant abnormalities are identified. There has been no significant change since the prior study. BI/SCREENING MAMM (CAD), BILAT IMPRESSION: Stable bilateral screening mammogram. Yearly follow-up mammogram recommended. (A) ASSESSMENT CATEGORY: BIRADS Category 2: Benign. A letter regarding these results will be sent to the patient by the facility within 30 days. Approximately 10% of breast cancers are not detected by mammography. A normal mammogram should not delay biopsy of a clinically suspicious abnormality. [id number] Electronically Signed: Ki Ayala MD at 8:55 EST ,
== END | disposition home or self-care (01) ==
LOC: OPBI 08:17
PROVIDERS: PCP Family Medicine; Referring Provider Nurse Practitioner Family; Visit Provider Nurse Practitioner Family
DX: Z12.31 Encounter for screening mammogram for malignant neoplasm of breast (principal)
CPT/HCPCS: 77067

== ENCOUNTER → 2025-03-29 | Outpatient (CLI) | payer OTHER, SELFPAY ==
--- NOTE | 2025-03-29 16:13 | CT_ITS ---
PROCEDURE: CHEST WITH CONTRAST 03/29/2025 REASON FOR EXAM: 5MM JACEK LUNG NODULE SEEN ON LDCT 6M PRIOR TECHNIQUE: CHEST WITH CONTRAST Coronal and Sagittal reconstruction series were provided. CONTRAST: Isovue 300 VOLUME: 100 mL One or more dose reduction techniques were used (e.g., Automated exposure control, adjustment of the mA and/or kV according to patient size, use of iterative reconstruction technique). RADIATION DOSE SUMMARY: CTDlvol: 33 mGy DLP: 710 mGycm COMPARISON: 07/18/2024 FINDINGS: Central airways are patent. Well inflated lungs. No consolidation, effusion, or pneumothorax. On the left, series 4, images 49/50 and series 602, image 82, there is redemonstration of an upper lobe pleural-based 7 mm nodular density, which is unchanged in size but there is a suggestion that the lesion is thigh in the calcified. On the right, no suspicious lung nodules. Unremarkable base of neck and axilla. Thoracic spine degeneration. Normal esophagus. Normal heart size. No vascular pathology. No acute chest wall findings. Status post gastric bypass. No acute upper abdominal findings. CT/Chest WITH Contrast IMPRESSION: Stable size of 7 mm pleural-based left upper lobe nodule, which may be calcifie d, strongly suggesting benign etiology. Recommend 1 year follow up imaging, with low-dose chest CT. Reading Location: [place] [id number]
== END | disposition home or self-care (01) ==
LOC: CT 08:01
PROVIDERS: PCP Family Medicine; Referring Provider Family Medicine; Visit Provider Family Medicine
DX: E03.9 Hypothyroidism, unspecified (principal); R91.1 Solitary pulmonary nodule
CPT/HCPCS: 36415; 71260; 84439; 84443; Q9967

== ENCOUNTER → 2025-07-22 | Outpatient (CLI) | payer OTHER, SELFPAY ==
--- NOTE | 2025-07-22 13:55 | BI_ITS ---
EXAM: SCRN MAMM (CAD)W/KENNETH BILAT DATE: 07/22/2025 CLINICAL HISTORY: F, Age 54 y/o , SCREENING TECHNIQUE: Procedure Code: [id number] Modality: MG Procedure: SCRN MAMM (CAD)W/KNENETH BILAT COMPARISON: Prior exam(s) were called FINDINGS: TISSUE DENSITY: The breasts are heterogeneously dense, which may obscure small masses. Bilateral Breast Mammographic Findings: No significant masses, calcifications or other abnormalities are identified. BI/SCRN MAMM (CAD)W/KENNETH BILAT IMPRESSION: No mammographic evidence of malignancy in either breast. OVERALL FINAL ASSESSMENT BI-RADS 1: NEGATIVE. RECOMMENDATION: Routine annual follow-up in 1 Year Additional Recommendation none A letter with findings and recommendations will be mailed to the patient. Reading Location: [id number]
--- NOTE | 2025-07-22 13:55 | BD_ITS ---
PROCEDURE: DEXA BONE DENSITY STUDY 07/22/2025 REASON FOR EXAM: F, age 54 y/o . Postmenopausal. TECHNIQUE: Procedure Code: BDDBD Modality: DX Procedure: DEXA BONE DENSITY STUDY COMPARISON: None FINDINGS: BMD and T-SCORES Lumbar spine: 0.845 g/cm2, T-score -1.8 Levels: L1 through L4 Left femoral neck: 0.738 g/cm2, T-score -1.0 Femoral neck comparison data not recommended for monitoring change. Left total hip: 0.859 g/cm2, T-score -0.7 Right femoral neck: 0.743 g/cm2, T-score -1.0 Femoral neck comparison data not recommended for monitoring change. Right total hip: 0.873 g/cm2, T-score -0.6 The World Health Organization has defined the following categories based on bone density: Normal bone density: T-score equal to or greater than -1.0 Osteopenia: T-score between -1.0 and -2.5 Osteoporosis: T-score equal to or less than -2.5 FRAX (or Comparable) Fracture Risk Assessment: 10 Year Probability of Fracture: Major Osteoporotic Fracture: 5% Hip Fracture: 0.2% (Note: FRAX is not to be reported in setting of normal range bone density, osteoporosis on DEXA, known history of osteoporosis, prior osteoporotic hip or vertebral fracture, or for any patient undergoing pharmacological treatment for bone loss.) The National Osteoporosis Foundation (NOF) recommends pharmacological treatment for patients with a FRAX 10-year risk of 3% or higher for a hip fracture, or 20% or higher for a major osteoporotic fracture, to prevent osteoporosis and reduce fracture risk. The patient does meet the pharmacological treatment recommendations for prevention of osteoporosis. BD/Dexa Bone Density Study IMPRESSION: OSTEOPENIA. Recommend follow-up as clinically warranted. Reading Location: [facility]
== END | disposition home or self-care (01) ==
LOC: OPBD 13:54
PROVIDERS: PCP Family Medicine; Referring Provider Nurse Practitioner Family; Visit Provider Nurse Practitioner Family
DX: Z12.31 Encounter for screening mammogram for malignant neoplasm of breast (principal); Z78.0 Asymptomatic menopausal state
CPT/HCPCS: 77063; 77067; 77080